=== PATIENT | female | born 1940 | race Caucasian/White ===

== ENCOUNTER 2018-02-16 17:44 | Inpatient (IN) | payer BC, MEDICARE ==
[2018-02-16] MEDS ORDERED: MORPHINE SULFATE 2 MG/ML SYRINGE IV STA (18:17)
[2018-02-16] MEDS ORDERED: SODIUM CHLORIDE 0.9% 500 ML IV STA (18:17)
[2018-02-16] MEDS ORDERED: ONDANSETRON 4 MG/2 ML VIAL IVP STA (18:17)
--- NOTE | 2018-02-16 18:23 | ED ---
General Adult HPI - General Chief complaint: Abdominal Pain Stated complaint: Abd Pain, Nausea Time Seen by Provider: 02/16/18 17:57 Source: patient, family, RN notes reviewed, old records reviewed Mode of arrival: wheelchair Limitations: no limitations - History of Present Illness Initial comments: 77-year-old female presents for evaluation of right-sided abdominal pain. Pain began yesterday and has progressively worsened. She has had this pain in the past but did not have any formal diagnosis made. She has chronic back pain for which she takes [place] 10 mg tablets. She denies vomiting but states she's had some nausea. Her last bowel movement was 3 hours prior to arrival and was yellow and loose.Ever diarrhea no rectal bleeding. Denies upper abdominal pain or chest pain. No shortness of breath. No fever or chills. She has had both her gallbladder and her appendix removed. - Related Data Home Medications Medication Instructions Recorded Confirmed Aspirin 81 mg PO BID 03/26/14 02/16/18 Gabapentin [Neurontin] 400 mg PO BID 03/26/14 02/16/18 Irbesartan/Hydrochlorothiazide 1 tab PO DAILY 03/26/14 02/16/18 [Avalide 150-12.5 mg Tablet] Montelukast [Singulair] 10 mg PO DAILY 03/26/14 02/16/18 Sertraline [Zoloft] 100 mg PO DAILY 03/26/14 02/16/18 Simvastatin [Zocor] 10 mg PO HS 03/26/14 02/16/18 Tolterodine Tartrate [Detrol LA] 4 mg PO DAILY 03/26/14 02/16/18 Baclofen [Lioresal] 10 mg PO TID 02/16/18 02/16/18 HYDROcodone/APAP 5-325MG [[place] 1 tab PO Q6HR PRN 02/16/18 02/16/18 5-325] Metoprolol Succinate (ER) [Toprol 50 mg PO BID 02/16/18 02/16/18 Xl] Multivitamins, Thera [Multivitamin 1 tab PO DAILY 02/16/18 02/16/18 (formulary)] Nortriptyline [Pamelor] 25 mg PO HS 02/16/18 02/16/18 Omeprazole [PriLOSEC] 20 mg PO AC-BID 02/16/18 02/16/18 Sucralfate [Carafate] 1 gm PO ACHS 02/16/18 02/16/18 hydrALAZINE HCL [Apresoline] 25 mg PO TID 02/16/18 02/16/18 Allergies Allergy/AdvReac Type Severity Reaction Status Date / Time latex Allergy Itching Verified 02/16/18 18:26 meperidine Allergy Swelling Verified 02/16/18 18:26 Penicillins AdvReac Confusion Verified 02/16/18 18:26 pregabalin [From Lyrica] AdvReac Confusion Verified 02/16/18 18:26 Sulfa (Sulfonamide AdvReac Itching Verified 02/16/18 18:26 Antibiotics) trimethoprim AdvReac Confusion Verified 02/16/18 18:26 Review of Systems ROS Statement: Those systems with pertinent positive or pertinent negative responses have been documented in the HPI. ROS Other: All systems not noted in ROS Statement are negative. Past Medical History Past Medical History: Asthma, Cancer, Chest Pain / Angina, Fibromyalgia, Hyperlipidemia, Hypertension, Osteoarthritis (OA) History of Any Multi-Drug Resistant Organisms: None Reported Past Surgical History: Appendectomy, Back Surgery, Bladder Surgery, Breast Surgery, Cholecystectomy, Heart Catheterization, Hysterectomy, Orthopedic Surgery Additional Past Surgical History / Comment(s): Skin CA removed, bladder suspension, bilat cataracts, rt foot surgery, lt wrist ganglion cystectomy, rt shoulder surgery, colonoscopy, egd, rt breast biopsy, rt knee scope, neck surgery Past Anesthesia/Blood Transfusion Reactions: No Reported Reaction Past Psychological History: No Psychological Hx Reported Smoking Status: Never smoker Past Alcohol Use History: None Reported Past Drug Use History: None Reported - Past Family History Father Family Medical History: Cancer Mother Family Medical History: Cancer Brother(s) Family Medical History: Cancer General Exam Limitations: no limitations General appearance: alert, in no apparent distress Head exam: Present: atraumatic, normocephalic Eye exam: Present: normal appearance. Absent: PERRL, EOMI ENT exam: Present: normal exam Neck exam: Present: normal inspection. Absent: tenderness, meningismus Respiratory exam: Present: normal lung sounds bilaterally. Absent: respiratory distress, wheezes Cardiovascular Exam: Present: regular rate, normal rhythm GI/Abdominal exam: Present: soft, distended, tenderness (Mid right-sided tenderness to palpation). Absent: guarding, rebound Extremities exam: Present: normal inspection, normal capillary refill, other ( DP pulses are 2+ and symmetric) Back exam: Absent: CVA tenderness (R), CVA tenderness (L) Neurological exam: Present: alert, oriented X3, CN II-XII intact. Absent: motor sensory deficit Psychiatric exam: Present: normal affect, normal mood Skin exam: Present: warm, dry, intact. Absent: cyanosis, diaphoretic Course Vital Signs 02/16/18 02/16/18 02/16/18 17:52 19:41 20:05 Temperature 98.4 F Pulse Rate 80 86 91 Respiratory 18 18 18 Rate Blood Pressure 202/92 208/91 181/82 O2 Sat by Pulse 99 99 99 Oximetry 02/16/18 22:13 Temperature Pulse Rate 91 Respiratory 16 Rate Blood Pressure 156/68 O2 Sat by Pulse 94 L Oximetry Medical Decision Making - Medical Decision Making 77-year-old female presenting with right upper quadrant abdominal pain. She has history of previous cholecystectomy. She is tender on exam. No rebound or guarding. Laboratory studies are obtained, normal white blood cell count, stable hemoglobin, potassium is 3.3 which is replaced. She has a mild elevation in AST, ALT, alkaline phosphatase and lipase. Total bili is normal. X-rays obtained this is negative for obstruction or free air. CT with contrast is obtained and does show significant dilatation of the common bile duct at 1.6 cm with no stone. This is reported as likely stricture. Initially patient is feeling better after treatment. Case is discussed with Dr. Durán, as long as patient is feeling better outpatient follow-up is appropriate. On reevaluation patient's symptoms have returned she will be admitted for IV hydration, pain control, and gastroenterology consultation. - Lab Data Result diagrams: 02/16/18 18:20 02/16/18 18:20 Lab Results 02/16/18 02/16/18 02/16/18 Range/Units 18:20 18:20 18:20 WBC 4.3 (3.8-10.6) k/uL RBC 3.91 (3.80-5.40) m/uL Hgb 12.1 (11.4-16.0) gm/dL Hct 36.6 (34.0-46.0) % MCV 93.8 (80.0-100.0) fL MCH 31.0 (25.0-35.0) pg MCHC 33.1 (31.0-37.0) g/dL RDW 13.8 (11.5-15.5) % Plt Count 177 (150-450) k/uL Neutrophils % 68 % Lymphocytes % 22 % Monocytes % 6 % Eosinophils % 1 % Basophils % 0 % Neutrophils # 3.0 (1.3-7.7) k/uL Lymphocytes # 1.0 (1.0-4.8) k/uL Monocytes # 0.3 (0-1.0) k/uL Eosinophils # 0.0 (0-0.7) k/uL Basophils # 0.0 (0-0.2) k/uL PT (9.0-12.0) sec INR (<1.2) APTT (22.0-30.0) sec Sodium 143 (137-145) mmol/L Potassium 3.3 L (3.5-5.1) mmol/L Chloride 103 (98-107) mmol/L Carbon Dioxide 26 (22-30) mmol/L Anion Gap 14 mmol/L BUN 9 (7-17) mg/dL Creatinine 0.62 (0.52-1.04) mg/dL Est GFR (CKD-EPI)AfAm >90 (>60 ml/min/1.73 sqM) Est GFR (CKD-EPI)NonAf 87 (>60 ml/min/1.73 sqM) Glucose 99 (74-99) mg/dL Plasma Lactic Acid Hernan 1.0 (0.7-2.0) mmol/L Calcium 9.6 (8.4-10.2) mg/dL Total Bilirubin 0.6 (0.2-1.3) mg/dL AST 60 H (14-36) U/L ALT 68 H (9-52) U/L Alkaline Phosphatase 276 H (38-126) U/L Total Protein 6.8 (6.3-8.2) g/dL Albumin 4.3 (3.5-5.0) g/dL Amylase 94 (30-110) U/L Lipase 364 H (23-300) U/L Urine Color Urine Appearance (Clear) Urine pH (5.0-8.0) Ur Specific [place] (1.001-1.035) Urine Protein (Negative) Urine Glucose (UA) (Negative) Urine Ketones (Negative) Urine Blood (Negative) Urine Nitrite (Negative) Urine Bilirubin (Negative) Urine Urobilinogen (<2.0) mg/dL Ur Leukocyte Esterase (Negative) Urine RBC (0-5) /hpf Urine WBC (0-5) /hpf Ur Squamous Epith Cells (0-4) /hpf Urine Bacteria (None) /hpf Urine Mucus (None) /hpf 02/16/18 02/16/18 Range/Units 18:20 18:20 WBC (3.8-10.6) k/uL RBC (3.80-5.40) m/uL Hgb (11.4-16.0) gm/dL Hct (34.0-46.0) % MCV (80.0-100.0) fL MCH (25.0-35.0) pg MCHC (31.0-37.0) g/dL RDW (11.5-15.5) % Plt Count (150-450) k/uL Neutrophils % % Lymphocytes % % Monocytes % % Eosinophils % % Basophils % % Neutrophils # (1.3-7.7) k/uL Lymphocytes # (1.0-4.8) k/uL Monocytes # (0-1.0) k/uL Eosinophils # (0-0.7) k/uL Basophils # (0-0.2) k/uL PT 10.4 (9.0-12.0) sec INR 1.1 (<1.2) APTT 22.4 (22.0-30.0) sec Sodium (137-145) mmol/L Potassium (3.5-5.1) mmol/L Chloride (98-107) mmol/L Carbon Dioxide (22-30) mmol/L Anion Gap mmol/L BUN (7-17) mg/dL Creatinine (0.52-1.04) mg/dL Est GFR (CKD-EPI)AfAm (>60 ml/min/1.73 sqM) Est GFR (CKD-EPI)NonAf (>60 ml/min/1.73 sqM) Glucose (74-99) mg/dL Plasma Lactic Acid Hernan (0.7-2.0) mmol/L Calcium (8.4-10.2) mg/dL Total Bilirubin (0.2-1.3) mg/dL AST (14-36) U/L ALT (9-52) U/L Alkaline Phosphatase (38-126) U/L Total Protein (6.3-8.2) g/dL Albumin (3.5-5.0) g/dL Amylase (30-110) U/L Lipase (23-300) U/L Urine Color Colorless Urine Appearance Clear (Clear) Urine pH 7.5 (5.0-8.0) Ur Specific [place] 1.002 (1.001-1.035) Urine Protein Trace H (Negative) Urine Glucose (UA) Negative (Negative) Urine Ketones Trace H (Negative) Urine Blood Negative (Negative) Urine Nitrite Negative (Negative) Urine Bilirubin Negative (Negative) Urine Urobilinogen <2.0 (<2.0) mg/dL Ur Leukocyte Esterase Small H (Negative) Urine RBC <1 (0-5) /hpf Urine WBC 3 (0-5) /hpf Ur Squamous Epith Cells <1 (0-4) /hpf Urine Bacteria Rare H (None) /hpf Urine Mucus Rare H (None) /hpf Disposition 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
[2018-02-16 18:35] LABS: Basophils % (A) 0 %; Eosinophils % (A) 1 %; HCT 36.6 % (34.0-46.0); HGB 12.1 gm/dL (11.4-16.0); Lymphocytes % (A) 22 %; MCHC 33.1 g/dL (31.0-37.0); MCV 93.8 fL (80.0-100.0); Mean Platelet Volume 6.6; Monocytes # (A) 0.3 k/uL (0-1.0); Monocytes % (A) 6 %; Neutrophils % (A) 68 %; Platelet Count 177 k/uL (150-450); RBC 3.91 m/uL (3.80-5.40); RDW 13.8 % (11.5-15.5); WBC 4.3 k/uL (3.8-10.6)
[2018-02-16 18:38] LABS: Appearance,Urine Clear (Clear); Bacteria,Urine Rare /hpf; Bilirubin,Urine Negative (Negative); Blood,Urine Negative (Negative); Color,Urine Colorless; Glucose,Urine (UA) Negative (Negative); Ketones,Urine Trace (Negative); Leukocyte Esterase,Urine Small (Negative); Mucus,Urine Rare /hpf; Nitrite,Urine Negative (Negative); PH, Urine 7.5 (5.0-8.0); Protein,Urine Trace (Negative); RBC,Urine <1 /hpf (0-5); Specific Gravity,Urine 1.002 (1.001-1.035); Squamous Epithelial Cell,Urine <1 /hpf (0-4); Urobilinogen,Urine <2.0 mg/dL (<2.0); WBC,Urine 3 /hpf (0-5)
[2018-02-16 18:43] LABS: INR 1.1 (<1.2); Partial Thromboplastin Time 22.4 sec (22.0-30.0); Prothrombin Time 10.4 sec (9.0-12.0)
[2018-02-16 18:45] LABS: ALT 68 U/L (9-52); AST 60 U/L (14-36); Albumin 4.3 g/dL (3.5-5.0); Alkaline Phosphatase 276 U/L (38-126); Amylase 94 U/L (30-110); Anion Gap 14 mmol/L; Blood Urea Nitrogen 9 mg/dL (7-17); Calcium 9.6 mg/dL (8.4-10.2); Carbon Dioxide 26 mmol/L (22-30); Chloride 103 mmol/L (98-107); Glucose 99 mg/dL (74-99); Lipase 364 U/L (23-300); Potassium 3.3 mmol/L (3.5-5.1); Sodium 143 mmol/L (137-145); Total Bilirubin 0.6 mg/dL (0.2-1.3); Total Protein 6.8 g/dL (6.3-8.2)
--- NOTE | 2018-02-16 18:49 | XR ---
EXAMINATION TYPE: XR KUB DATE OF EXAM: 02/16/2018 6:43 PM CLINICAL HISTORY: Right-sided abdominal pain and nausea TECHNIQUE: Single upright image of the abdomen is obtained. COMPARISON: None. FINDINGS: Scattered gas is seen in non-distended small bowel loops. Gas and fecal material is seen in non-distended colon. There is no visceromegaly, pneumoperitoneum, or abnormal calcification apprecia hola. Postsurgical changes are seen in the lumbar spine with dextroscoliosis and extensive degenerativ e change. Cholecystectomy clips are also noted. The lung bases are clear. IMPRESSION: Nonobstructive bowel gas pattern.
[2018-02-16] MEDS ORDERED: FAMOTIDINE 20 MG/2 ML VIAL IV STA (19:26)
[2018-02-16] MEDS ORDERED: diphenhydrAMINE 50 MG/ML 1 ML VIAL IVP STA (19:26)
[2018-02-16] MEDS ORDERED: methylPREDNISolone SOD SUCCI 125 MG/2 ML VIAL IV STA (19:26)
[2018-02-16] MEDS ORDERED: METOPROLOL SUCCINATE (ER) 50 MG TAB.ER.24H PO STA (19:43)
[2018-02-16] MEDS ORDERED: hydrALAZINE HCL 25 MG TAB PO STA (19:43)
--- NOTE | 2018-02-16 20:25 | CT ---
EXAMINATION TYPE: CT abdomen pelvis w con DATE OF EXAM: 02/16/2018 HISTORY: Right sided abdominal pain with nausea. CT DLP: 784.2mGycm Automated Exposure Control for Dose Reduction was Utilized. CONTRAST: CT scan of the abdomen and pelvis is performed with IV Contrast, patient injected with 100 mL of Isov ue 300. COMPARISON: None. FINDINGS: LUNG BASES: Bibasilar subsegmental atelectasis is seen. LIVER/GB: There is mild intrahepatic and pronounced extrahepatic biliary ductal dilatation. Common bi le duct measures up to 1.6 cm. There is tapering seen at the pancreatic head, which could relate to s tricture. Tapering does appear smooth. No pancreatic ductal dilatation. Gallbladder surgically absent . PANCREAS: Mild pancreatic atrophy with no ductal dilatation. SPLEEN: No splenomegaly. ADRENALS: No nodularity or thickening. KIDNEYS: Sparing artifact from the lumbar fusion rods limit evaluation of the kidneys. There is an il l-defined left renal mass versus pseudomass that is isoattenuated to renal parenchyma but seen on the coronal images best on series 8 image 47. This measures 2.5 x 2.4 x 2.3 cm. BOWEL: There are a few scattered colonic diverticuli without pericolonic fat stranding changes. Bowel is nondilated. UTERUS/ADNEXA: The uterus is either surgically absent or significantly atrophy.. LYMPH NODES: No greater than 1cm abdominal or pelvic lymph nodes are appreciated. OSSEOUS STRUCTURES: There are postsurgical changes of the lumbar spine with grade 2 retrolisthesis of L2 on L3, grade 1 retrolisthesis of L1 on L2, and age-indeterminate fracture deformity of T12 there is superior endplate with 4 mm retropulsion of the superior posterior endplate creating at least mild spinal canal stenosis. Additionally there is grade 1 anterolisthesis of L5 on S1. There is a dextros coliotic curvature of the lumbar spine. OTHER: Abdominal aorta is of normal course and caliber with minimal calcific and noncalcific atheroma tous changes. IMPRESSION: 1. Mild intrahepatic and pronounced extrahepatic biliary ductal dilatation with smooth tapering at th e pancreatic head of the biliary system favoring stricture. No radiopaque calculi are seen. 2. 2.5 cm left renal mass versus pseudomass. Further evaluation with enhanced MRI is recommended to e xclude neoplasm. 3. Age indeterminant compression deformity of the T12 vertebral body, postsurgical changes of the lum bar spine, extra scoliosis of the lumbar spine and multilevel malalignment.
[2018-02-16] MEDS ORDERED: ONDANSETRON 4 MG/2 ML VIAL IVP PRN (22:34)
[2018-02-16] MEDS ORDERED: NALOXONE 0.4 MG/ML 1 ML VIAL IV PRN (22:34)
[2018-02-16] MEDS ORDERED: POTASSIUM CHLORIDE ER 20 MEQ TAB.ER PO STA (22:34)
[2018-02-16] MEDS: hydrALAZINE HCL 25 MG TAB PO SCH (23:15)
[2018-02-16] MEDS: METOPROLOL SUCCINATE (ER) 50 MG TAB.ER.24H PO SCH (23:15)
[2018-02-17] MEDS: HYDROmorphone 0.5 MG/0.5 ML SYRINGE IVP PRN ×3 (00:23→16:06)
[2018-02-17] MEDS: 0.9% NACL WITH KCL 20 MEQ/L 1,000 ML IV SCH ×2 (00:23→21:21)
[2018-02-17] MEDS: BACLOFEN 10 MG TAB PO SCH ×4 (00:24→21:07)
[2018-02-17] MEDS: GABAPENTIN 400 MG CAP PO SCH ×3 (00:25→21:06)
[2018-02-17 01:25] VITALS: BMI 28.3
[2018-02-17 07:48] LABS: Basophils % (A) 0 %; Eosinophils % (A) 0 %; HCT 34.1 % (34.0-46.0); HGB 11.4 gm/dL (11.4-16.0); Lymphocytes # (A) 0.7 k/uL (1.0-4.8); Lymphocytes % (A) 19 %; MCH 31.5 pg (25.0-35.0); MCHC 33.4 g/dL (31.0-37.0); MCV 94.4 fL (80.0-100.0); Mean Platelet Volume 7.5; Monocytes # (A) 0.1 k/uL (0-1.0); Monocytes % (A) 2 %; Neutrophils # (A) 2.8 k/uL (1.3-7.7); Neutrophils % (A) 78 %; Platelet Count 167 k/uL (150-450); RBC 3.61 m/uL (3.80-5.40); RDW 13.7 % (11.5-15.5); WBC 3.5 k/uL (3.8-10.6)
[2018-02-17 07:55] LABS: INR 1.1 (<1.2); Prothrombin Time 10.5 sec (9.0-12.0)
[2018-02-17 07:58] LABS: ALT 95 U/L (9-52); AST 102 U/L (14-36); Albumin 3.8 g/dL (3.5-5.0); Alkaline Phosphatase 267 U/L (38-126); Amylase 40 U/L (30-110); Anion Gap 12 mmol/L; Blood Urea Nitrogen 9 mg/dL (7-17); Calcium 9.1 mg/dL (8.4-10.2); Carbon Dioxide 27 mmol/L (22-30); Chloride 105 mmol/L (98-107); Glucose 126 mg/dL (74-99); Lipase 47 U/L (23-300); Magnesium 1.2 mg/dL (1.6-2.3); Sodium 144 mmol/L (137-145); Total Bilirubin 0.5 mg/dL (0.2-1.3); Total Protein 6.2 g/dL (6.3-8.2)
[2018-02-17] MEDS: hydrALAZINE HCL 25 MG TAB PO SCH ×3 (08:19→21:07)
[2018-02-17] MEDS: PANTOPRAZOLE 40 MG/10 ML VIAL IVP SCH (08:19)
[2018-02-17] MEDS: METOPROLOL SUCCINATE (ER) 50 MG TAB.ER.24H PO SCH ×2 (08:20→21:06)
[2018-02-17] MEDS: SUCRALFATE 1 GM TAB PO SCH ×4 (08:20→21:06)
[2018-02-17] MEDS ORDERED: NON-FORMULARY DRUG (Omeprazole 20 MG) PO SCH (10:15)
[2018-02-17] MEDS ORDERED: OXYBUTYNIN XL 5 MG TAB.ER.24 PO SCH (10:30)
[2018-02-17] MEDS: MONTELUKAST 10 MG TAB PO SCH (12:59)
[2018-02-17] MEDS: SERTRALINE 100 MG TAB PO SCH (13:00)
[2018-02-17] MEDS: LOSARTAN 50 MG TAB PO SCH (13:00)
[2018-02-17] MEDS: HYDROCHLOROTHIAZIDE 12.5 MG CAP PO SCH (13:00)
[2018-02-17] MEDS: OXYBUTYNIN XL 5 MG TAB.ER.24 PO SCH (13:01)
[2018-02-17] MEDS ORDERED: LACTULOSE 20 GM/30 ML CUP PO PRN (13:49)
[2018-02-17] MEDS ORDERED: MAGNESIUM HYDROXIDE 2,400 MG/10 ML CUP PO PRN (13:49)
[2018-02-17] MEDS ORDERED: MELATONIN 3 MG TABLET PO PRN (13:49)
[2018-02-17] MEDS ORDERED: ALPRAZolam 0.25 MG TAB PO PRN (13:49)
[2018-02-17] MEDS ORDERED: CALCIUM CARBONATE 500 MG CHEWABLE PO PRN (13:49)
[2018-02-17] MEDS: HYDROcodone/APAP 5-325MG 1 EACH TAB PO PRN (15:29)
[2018-02-17] MEDS: ENOXAPARIN 40 MG/0.4 ML SYRINGE SQ SCH (16:06)
--- NOTE | 2018-02-17 16:24 | P.CNOR ---
History of Present Illness - [facility] Consult date: 02/17/18 Requesting physician: Matteo Rivas Consult reason: low back pain History of present illness: Patient is a very pleasant 77-year-old female who is seen and examined at bedside for further evaluation and consult was placed for low back pain and right-sided hip pain. She has a significant history in terms of her lumbar spine. She states she first underwent surgical intervention [address] Weston. She states postoperatively she had a stroke which left her with some chronic weakness in the left side of her body. She states since that time she has undergone 6 other surgical interventions in regards to her lumbosacral spine with the last being a fusion performed by Dr. Vidal in May 2017. She continues to follow with Dr. Vidal for further treatment and evaluation. She states she goes to [place] over the winter. She states that after further discussion with Dr. Vidal, they returned from [place] early in December 2017 for further evaluation in regards to her lumbar spine. At that time is admitted to the hospital for approximately one week due to lower extremity weakness. At discharge she was discharged to a rehabilitation facility. Since at that time she states she's had another small stroke. She states she is planning for further treatment with Dr. Vidal and states she was going to undergo further injections but was not planning for further surgical intervention. She does admit to chronic low back pain. She states her symptoms have been worsening. She does not have any pain with palpation to her lumbosacral spine. She states her pain is controlled while sitting. Her pain is exacerbated during increased activities. She denies any specific recent injuries. She has some pain that radiates over the right lateral hip. She denies any specific lower extremity weakness bilaterally other than her chronic left lower extremity weakness. She presented to the emergency department for further evaluation in regards to significantly worsening right-sided abdominal pain. She was experiencing some back pain at that time as well. She admits to taking [place] 10 mg/325 mg as prescribed for her chronic back pain. Nursing states she is currently scheduled for an MRCP today or tomorrow. Past Medical History Past Medical History: Asthma, Cancer, Chest Pain / Angina, CVA/TIA, Fibromyalgia , Hyperlipidemia, Hypertension, Osteoarthritis (OA) Additional Past Medical History / Comment(s): Patient states she was admitted to [facility] in [place] for two "mini strokes" within the past month. States she was admitted for a week at a time for each "mini stroke". History of Any Multi-Drug Resistant Organisms: None Reported Past Surgical History: Appendectomy, Back Surgery, Bladder Surgery, Breast Surgery, Cholecystectomy, Heart Catheterization, Hysterectomy, Orthopedic Surgery Additional Past Surgical History / Comment(s): Skin CA removed, bladder suspension, bilat cataracts, rt foot surgery, lt wrist ganglion cystectomy, rt shoulder surgery, colonoscopy, egd, rt breast biopsy, rt knee scope, neck surgery Past Anesthesia/Blood Transfusion Reactions: No Reported Reaction Past Psychological History: No Psychological Hx Reported Smoking Status: Never smoker Past Alcohol Use History: None Reported Past Drug Use History: None Reported - Past Family History Father Family Medical History: Cancer Mother Family Medical History: Cancer Brother(s) Family Medical History: Cancer Medications and Allergies Home Medications Medication Instructions Recorded Confirmed Type Aspirin 81 mg PO BID 03/26/14 02/16/18 History Gabapentin [Neurontin] 400 mg PO BID 03/26/14 02/16/18 History Irbesartan/Hydrochlorothiazide 1 tab PO DAILY 03/26/14 02/16/18 History [Avalide 150-12.5 mg Tablet] Montelukast [Singulair] 10 mg PO DAILY 03/26/14 02/16/18 History Sertraline [Zoloft] 100 mg PO DAILY 03/26/14 02/16/18 History Simvastatin [Zocor] 10 mg PO HS 03/26/14 02/16/18 History Tolterodine Tartrate [Detrol LA] 4 mg PO DAILY 03/26/14 02/16/18 History Baclofen [Lioresal] 10 mg PO TID 02/16/18 02/16/18 History HYDROcodone/APAP 5-325MG [[place] 1 tab PO Q6HR PRN 02/16/18 02/16/18 History 5-325] Metoprolol Succinate (ER) [Toprol 50 mg PO BID 02/16/18 02/16/18 History Xl] Multivitamins, Thera [Multivitamin 1 tab PO DAILY 02/16/18 02/16/18 History (formulary)] Nortriptyline [Pamelor] 25 mg PO HS 02/16/18 02/16/18 History Omeprazole [PriLOSEC] 20 mg PO AC-BID 02/16/18 02/16/18 History Sucralfate [Carafate] 1 gm PO ACHS 02/16/18 02/16/18 History hydrALAZINE HCL [Apresoline] 25 mg PO TID 02/16/18 02/16/18 History Allergies Allergy/AdvReac Type Severity Reaction Status Date / Time latex Allergy Itching Verified 02/17/18 09:25 meperidine Allergy Swelling Verified 02/17/18 09:25 Penicillins AdvReac Confusion Verified 02/17/18 09:25 pregabalin [From Lyrica] AdvReac Confusion Verified 02/17/18 09:25 Sulfa (Sulfonamide AdvReac Itching Verified 02/17/18 09:25 Antibiotics) trimethoprim AdvReac Confusion Verified 02/17/18 09:25 Physical Examination Physical exam: Patient is awake, alert, and oriented 3 Vital signs stable Good chest excursion with deep inspiration and expiration Examination of lumbar spine reveals skin is intact with no abrasions, lacerations, or bruises; no erythema, purulence or signs of infection Evidence of a large well-healed incision along the midline of the lumbar spine No exacerbation of pain with palpation of the lumbar spine Dorsiflexion, plantarflexion, and extensor hallucis longus positive sustained bilaterally Lower extremity strength 5/5 on the right Left lower extremity strength 4-/5 including hip flexion and knee extension No lower extremity hyperreflexia bilaterally Straight leg test negative bilateral lower extremities No signs or symptoms of DVT; no calf pain Compression stocking intact left lower extremity No pain with internal and external rotation of the hips bilaterally Neurovascularly intact Results Pertinent studies: CT the abdomen and pelvis: Intrahepatic and pronounced extrahepatic biliary ductal dilation was used tapering at the pancreatic head; 2.5 cm left renal mass versus pseudo-mass; T12 compression fracture deformity of indeterminate age ; lumbar fusion L3-4; L1-2 retrolisthesis; L2-3 retrolisthesis and asymmetric degenerative disc disease; L4-5 degenerative disc disease and a lateral listhesis; L5-S1 spondylolisthesis and degenerative disc disease, degenerative scoliosis with the apex of the curve at L2-3 - Labs Labs: Abnormal Lab Results - Last 24 Hours (Table) 02/16/18 02/16/18 02/17/18 Range/Units 18:20 18:20 07:24 WBC 3.5 L (3.8-10.6) k/uL RBC 3.61 L (3.80-5.40) m/uL Lymphocytes # 0.7 L (1.0-4.8) k/uL Potassium 3.3 L (3.5-5.1) mmol/L Glucose (74-99) mg/dL Magnesium (1.6-2.3) mg/dL AST 60 H (14-36) U/L ALT 68 H (9-52) U/L Alkaline Phosphatase 276 H (38-126) U/L Total Protein (6.3-8.2) g/dL Lipase 364 H (23-300) U/L Urine Protein Trace H (Negative) Urine Ketones Trace H (Negative) Ur Leukocyte Esterase Small H (Negative) Urine Bacteria Rare H (None) /hpf Urine Mucus Rare H (None) /hpf 02/17/18 Range/Units 07:24 WBC (3.8-10.6) k/uL RBC (3.80-5.40) m/uL Lymphocytes # (1.0-4.8) k/uL Potassium (3.5-5.1) mmol/L Glucose 126 H (74-99) mg/dL Magnesium 1.2 L (1.6-2.3) mg/dL AST 102 H (14-36) U/L ALT 95 H (9-52) U/L Alkaline Phosphatase 267 H (38-126) U/L Total Protein 6.2 L (6.3-8.2) g/dL Lipase (23-300) U/L Urine Protein (Negative) Urine Ketones (Negative) Ur Leukocyte Esterase (Negative) Urine Bacteria (None) /hpf Urine Mucus (None) /hpf H & H 02/16/18 02/17/18 Range/Units 18:20 07:24 Hgb 12.1 11.4 (11.4-16.0) gm/dL Hct 36.6 34.1 (34.0-46.0) % Coagulation 18 02/17/18 Range/Units 18:20 07:24 INR 1.1 1.1 (<1.2) Result Diagrams: 02/17/18 07:24 02/17/18 07:24 Assessment and Plan Assessment: Assessment: Acute on chronic low back pain Previous lumbar fusion L3-4 Lumbar radiculopathy towards the right hip L1-2 and L2-3 retrolisthesis L4-5 lateral listhesis L5-S1 spondylolisthesis Multilevel lumbar degenerative disc disease T12 compression fracture deformity of indeterminate age Degenerative scoliosis Chronic left lower extremity weakness status post stroke Right sided abdominal pain Left renal mass vs pseudomass (1) Acute exacerbation of chronic low back pain Current Visit: Yes Status: Acute Code(s): M54.5 - LOW BACK PAIN; G89.29 - OTHER CHRONIC PAIN SNOMED Code(s): 860705816 (2) History of lumbar fusion Current Visit: Yes Status: Acute Code(s): Z98.1 - ARTHRODESIS STATUS SNOMED Code(s): 297395395 (3) Spondylolisthesis, lumbar region Current Visit: Yes Status: Acute Code(s): M43.16 - SPONDYLOLISTHESIS, LUMBAR REGION SNOMED Code(s): 244976057215001 (4) Degenerative scoliosis in adult patient Current Visit: Yes Status: Acute Code(s): M41.50 - OTHER SECONDARY SCOLIOSIS , SITE UNSPECIFIED SNOMED Code(s): 150697778 (5) Lumbar degenerative disc disease Current Visit: Yes Status: Acute Code(s): M51.36 - OTHER INTERVERTEBRAL DISC DEGENERATION, LUMBAR REGION SNOMED Code(s): 94666433 (6) T12 compression fracture Current Visit: Yes Status: Acute Code(s): S22.080A - WEDGE COMPRESSION FRACTURE OF T11-T12 VERTEBRA, INIT SNOMED Code(s): 343268809 (7) Left leg weakness Current Visit: Yes Status: Acute Code(s): R29.898 - OTH SYMPTOMS AND SIGNS INVOLVING THE MUSCULOSKELETAL SYSTEM SNOMED Code(s): 834078519 (8) History of stroke Current Visit: Yes Status: Acute Code(s): Z86.73 - PRSNL HX OF TIA (TIA), AND CEREB INFRC W/O RESID DEFICITS SNOMED Code(s): 412532512 (9) Right sided abdominal pain Current Visit: Yes Status: Acute Code(s): R10.9 - UNSPECIFIED ABDOMINAL PAIN SNOMED Code(s): 587625084 Plan: Plan: 1. Imaging has been reviewed by Dr. Oskar Villalobos and myself. Patient has been discussed in detail with Dr. Oskar Villalobos. At this time, we'll plan to continue conservative treatment regards her lumbosacral spine. Patient has undergone approximately 7 surgical interventions in regards to her lumbar spine with her most recent being a lumbar fusion at L3-[address] Vidal in May 2017. She continues to follow with Dr. Vidal and is currently receiving treatment with him. She states she is planning for further injections with Dr. Vidal. She has significant degenerative changes throughout her lumbosacral spine. It is difficult to determine which level is causing her the most pain. We feel she should continue to follow with Dr. Vidal as she has already established with him, has undergone surgical intervention with him, and continues to follow with him. She may continue to take [place] 10 mg/325 mg as previously prescribed as needed for relief of her symptoms. We are not currently complaining for any changes in terms of medications and are not discussing the possibility of surgical intervention. From an orthopedic spine standpoint, patient is clear for discharge once cleared by other medical providers and we'll continue to follow with Dr. Vidal as scheduled. 2. Patient will continue to be seen and examined by medicine and Dr. Durán in gastroenterology for further treatment and evaluation in regards to her right- sided abdominal pain; patient is currently planning to undergo MRCP today or tomorrow. 3. Dr. Rivas in medicine has consulted with Dr. Mckinley for further evaluation of a left renal mass vs pseudomass Time with Patient: Less than 30
--- NOTE | 2018-02-17 16:27 | HP ---
HISTORY AND PHYSICAL DATE OF ADMISSION: 02/16/2018 DATE OF SERVICE: 02/17/2018 PRESENTING COMPLAINT: Right-sided pain. HISTORY OF PRESENTING COMPLAINT: This is a very pleasant 77-year-old patient of Dr. Kwon. Chronic stable conditions include fibromyalgia, hypertension, hyperlipidemia, osteoarthritis and TIAs. The patient has had at least 3 back surgeries, including and Dr. Ramires. The patient had multiple lumbar fusions done. Patient was in [facility], and started developing severe pain in the right side below the ribcage, what she described as coming from the back come to the front. There was some nausea. No fever. No chills. The patient has had a poor appetite for the last few months and has lost about 15 pounds. Patient normally has a bowel movement every 3 days, green in color. No fever or chills. Patient in the ER did have an abdominal CT scan that did show some extrahepatic biliary dilatation. Hence patient was admitted for further workup. Patient's pain is much worse with moving, and especially when the car would bump, the pain would increase. REVIEW OF SYSTEMS: CONSTITUTIONAL: Tired. HEENT: None. RESPIRATORY: None. CARDIOVASCULAR: None. GASTROINTESTINAL: None. GENITOURINARY: None. MUSCULOSKELETAL: Arthritic pain in the joints and as above. DERMATOLOGICAL: None. HEMATOLOGICAL: None. LYMPHATICS: None. PSYCHIATRY: None. NEUROLOGICAL: None. PAST MEDICAL HISTORY: 1. TIA. 2. Fibromyalgia. 3. Hypertension. 4. Hyperlipidemia. 5. Osteoarthritis. PAST SURGICAL HISTORY: 1. Appendectomy. 2. Back surgery. 3. Bladder surgery. 4. Breast surgery. 5. Cholecystectomy. 6. Cardiac catheterization. 7. Hysterectomy. 8. Skin cancer. 9. Bladder suspension. 10.Bilateral cataract. 11.Right foot surgery. 12.Left wrist ganglion cystectomy. 13.Right shoulder surgery. 14.Right breast biopsy. 15.Right knee arthroscope. 16.Neck surgery. SOCIAL HISTORY: No smoking. No alcohol. . FAMILY HISTORY: Cancer; type unknown. HOME MEDICATIONS: 1. [place] 5 one tablet q.6 p.r.n. 2. Hydralazine 25 mg p.o. t.i.d. 3. Toprol XL 50 mg p.o. b.i.d. 4. Baclofen 10 mg t.i.d. 5. Carafate 1 gram with each meal and at bedtime. 6. Prilosec 20 mg b.i.d. 7. Singulair 10 mg p.o. daily. 8. Irbesartan/hydrochlorothiazide 150/12.5 one tablet p.o. daily. 9. Neurontin 100 mg b.i.d. 10.Detrol LA 4 mg p.o. daily. 11.Zocor 10 mg at bedtime. 12.Zoloft 100 mg p.o. daily. 13.Multivitamin 1 tablet p.o. daily. 14.Pamelor 25 mg at bedtime. 15.Aspirin 81 mg p.o. b.i.d. ALLERGIES: 1. LATEX. 2. MEPERIDINE. 3. PENICILLIN. 4. LYRICA. 5. SULFA. 6. BACTRIM. PHYSICAL EXAMINATION: VITAL SIGNS ON PRESENTATION: Temperature 98.4, pulse 80, respiration 18, blood pressure 202/92, repeat 156/68, pulse ox 94% on room air. GENERAL APPEARANCE: Average build. Sitting up, uncomfortable-appearing. Family is at the bedside. EYES: Pupils equal. Conjunctivae normal. HEENT: External appearance of nose and ears normal. Oral cavity normal. NECK: JVD not raised. Mass not palpable. RESPIRATORY: Effort normal. Lungs are clear. CARDIOVASCULAR: First and second sounds normal. No edema. RIGHT UPPER QUADRANT: Not much tenderness. Some tenderness on the lower part of the ribs posteriorly adjoining the vertebral spine. No renal angle tenderness. Liver and spleen not palpable. LYMPHATIC: No lymph node palpable in neck or axillae. PSYCHIATRY: Alert and oriented x3. Mood and affect normal. NEUROLOGICAL: Pupils equal. Cranial nerves grossly intact. Power and sensation grossly intact. INVESTIGATIONS: White count 3.5, hemoglobin 11.4, platelets 167. Potassium 4, BUN 9, creatinine 0.63. AST 60; repeat was 102. ALT 68; repeat 95. Alkaline phosphatase 276. Lipase [address] scan of the abdomen and pelvis showing mild intrahepatic and pronounced extrahepatic biliary duct dilatation with smooth tapering at the pancreatic head of the biliary system favoring some stricture. No calculi reported; 2.5 cm left renal mass versus pseudomass, age indeterminate. Compression deformity T12 vertebra and post-surgical changes. ASSESSMENT: 1. This is a very pleasant elderly lady who has had multiple spinal surgeries in the lumbar spine area now presenting with pain that she describes being in the back coming to the front. It well could be radiculopathy, given especially radicular pain. Patient has minimal tenderness, right upper quadrant, but patient has extra biliary dilatation which can happen from cholecystectomy itself, though patient has some elevated liver enzymes. Hence need to rule out any residual stone in the common bile duct. The picture is not clear. 2. Chronic fibromyalgia. 3. Essential hypertension. 4. Hyperlipidemia. 5. Primary osteoarthritis. 6. T12 compression fracture. 7. Left renal mass 2.5 cm. PLAN: Care was discussed with Dr. Brian Durán. She is going to go ahead and do an MRCP; if any suggestion of a stone, patient will need an ERCP in that case. Will also get a urology opinion. Home medications are resumed. Patient is getting some pain medication, ice pack for pain control. Care was discussed with the patient and family at the bedside. MMODL / IJN: [id number] /
[2018-02-17] MEDS: MAGNESIUM OXIDE 400 MG TAB PO SCH ×2 (16:47→21:07)
[2018-02-17] MEDS: NORTRIPTYLINE 25 MG CAP PO SCH (21:06)
[2018-02-17] MEDS: ASPIRIN 81 MG PO SCH (21:06)
--- NOTE | 2018-02-17 21:39 | CONS ---
CONSULTATION DATE OF SERVICE: 02/17/2018 REQUESTING PHYSICIAN: Dr. Rivas. REASON FOR CONSULTATION: Abdominal pain and elevated LFTs. HISTORY OF PRESENT ILLNESS: The patient is a 77-year-old pleasant white female admitted to the hospital because of chronic intermittent right upper quadrant abdominal pain radiating to the back for the last 6 months duration. The pain has been progressively getting worse for the last few days and yesterday the pain became so intense she came into the emergency room and subsequently was admitted for further evaluation. The patient states that she has chronic back pain. Had multiple back surgeries over the last several years. The pain is mostly in the right flank area and radiates to the right upper quadrant area and worse with physical activity. Occasionally the pain causes nausea, but no emesis. She is status post gallbladder surgery multiple years ago for symptomatic gallstones. In the emergency room, she had a CT of the abdomen and pelvis done that showed intra and extrahepatic biliary ductal dilation with the CBD measuring 1.6 cm in diameter and mild dilation of the pancreatic duct and hence we were consulted because of this issue. The patient this morning is feeling better. PAST MEDICAL HISTORY: Significant for hypertension, fibromyalgia, chronic back pain, degenerative joint disease and history of TIA. PAST SURGICAL HISTORY: Appendectomy, back surgery, bladder surgery, breast surgery, cholecystectomy, hysterectomy, bilateral cataract surgery, right shoulder surgery. MEDICATIONS AT HOME: Include [place], hydralazine, Toprol, baclofen, Carafate, Prilosec, Singulair, Neurontin, Detrol, Zocor, Zoloft, multivitamin, Pamelor, and aspirin. ALLERGIES: LATEX, MEPERIDINE, PENICILLIN, LYRICA, SULFA, BACTRIM. SOCIAL HISTORY: No smoking. No alcohol use. FAMILY HISTORY: Unremarkable. REVIEW OF SYSTEMS: CARDIOPULMONARY: No chest pain or shortness of breath. GENITOURINARY: No dysuria or hematuria. MUSCULOSKELETAL: Unremarkable. ENDOCRINE: Unremarkable. NEUROLOGY: Unremarkable. PSYCHIATRIC: Unremarkable. MUSCULOSKELETAL: Chronic back pain. ENT: Vision unremarkable. CONSTITUTIONAL: No recent weight loss. No fever, chills, night sweats. PHYSICAL EXAMINATION: She appears comfortable. No apparent distress. VITAL SIGNS: Stable. Temperature 98.4, pulse 80, blood pressure 198/86 and afebrile. HEENT EXAMINATION: Unremarkable. Conjunctivae pink. Sclerae anicteric. Oral cavity no lesions. Oral cavity no lesions. NECK: No JVD or lymph node enlargement. CHEST: Clear to auscultation. HEART: Regular rate and rhythm. ABDOMEN: Soft. Bowel sounds are positive. Mild tenderness in the right upper quadrant area. EXTREMITIES: No pedal edema. SKIN: No rashes. NEUROLOGIC: Alert and oriented x3. No focal deficits. LAB: Done at the time of admission hospital to the hospital: WBC 3.4, hemoglobin 11.4, platelets are normal. AST is 102, ALT is 25, alkaline phosphatase 267, total bilirubin 0.7. PT and INR is within normal limits. CT of the abdomen showed intra and extrahepatic biliary ductal dilation with common bile duct measuring 1.6 cm in diameter. Evidence of previous cholecystectomy. Compression deformity of T12 vertebra and 2.5 cm left renal mass versus . IMPRESSION: 1. This is a lady who presents with intermittent right upper quadrant abdominal pain radiating to the back for the last 6 months duration, which has been progressively getting worse in the last few days. She was noted to have mild elevation of serum transaminases and CT of the abdomen showed significant dilation of the CBD measuring 1.6 cm in diameter. At this time possibility of CBD stones cannot be entirely excluded. She is status post gallbladder surgery for symptomatic gallstones 5 years ago. 2. Chronic back pain with multiple back surgeries. RECOMMENDATION: Had a discussion with the patient, as well as the family who was at the bedside. At this time we will investigate this further. She will be scheduled for an MRCP today to evaluate the biliary system and based on that we will consider further workup. Thank you for this consultation. MMODL / IJN: [id number] /
--- NOTE | 2018-02-17 21:53 | P.GSCN ---
History of Present Illness Consult date: 02/17/18 Reason for Consult: Possible left renal mass Requesting physician: Matteo Rivas History of present illness: the patient is a 77-year-old white female admitted for evaluation of right- sided abdominal pain. The computed tomography scan has shown a questionable left renal mass, for which I have been consulted. She has an unremarkable urologic history. She has no prior history of urolithiasis, and has never previously been told that she has a renal mass. She states that she has required treatment for approximately 2 UTIs annually. Review of Systems - Constitutional Denies chills, Denies fever - Gastrointestinal Reports constipation, Reports diarrhea, Reports nausea, Denies vomiting - Genitourinary Genitourinary: Denies dysuria, Denies hematuria Past Medical History Past Medical History: Asthma, Cancer, Chest Pain / Angina, CVA/TIA, Fibromyalgia , Hyperlipidemia, Hypertension, Osteoarthritis (OA) Additional Past Medical History / Comment(s): Patient states she was admitted to [facility] in [place] for two "mini strokes" within the past month. States she was admitted for a week at a time for each "mini stroke". History of Any Multi-Drug Resistant Organisms: None Reported Past Surgical History: Appendectomy, Back Surgery, Bladder Surgery, Breast Surgery, Cholecystectomy, Heart Catheterization, Hysterectomy, Orthopedic Surgery Additional Past Surgical History / Comment(s): Skin CA removed, bladder suspension, bilat cataracts, rt foot surgery, lt wrist ganglion cystectomy, rt shoulder surgery, colonoscopy, egd, rt breast biopsy, rt knee scope, neck surgery Past Anesthesia/Blood Transfusion Reactions: No Reported Reaction Past Psychological History: No Psychological Hx Reported Smoking Status: Never smoker Past Alcohol Use History: None Reported Past Drug Use History: None Reported - Past Family History Father Family Medical History: Cancer Mother Family Medical History: Cancer Brother(s) Family Medical History: Cancer Medications and Allergies Home Medications Medication Instructions Recorded Confirmed Type Aspirin 81 mg PO BID 03/26/14 02/16/18 History Gabapentin [Neurontin] 400 mg PO BID 03/26/14 02/16/18 History Irbesartan/Hydrochlorothiazide 1 tab PO DAILY 03/26/14 02/16/18 History [[place] 150-12.5 mg Tablet] Montelukast [Singulair] 10 mg PO DAILY 03/26/14 02/16/18 History Sertraline [Zoloft] 100 mg PO DAILY 03/26/14 02/16/18 History Simvastatin [Zocor] 10 mg PO HS 03/26/14 02/16/18 History Tolterodine Tartrate [Detrol LA] 4 mg PO DAILY 03/26/14 02/16/18 History Baclofen [Lioresal] 10 mg PO TID 02/16/18 02/16/18 History HYDROcodone/APAP 5-325MG [[place] 1 tab PO Q6HR PRN 02/16/18 02/16/18 History 5-325] Metoprolol Succinate (ER) [Toprol 50 mg PO BID 02/16/18 02/16/18 History Xl] Multivitamins, Thera [Multivitamin 1 tab PO DAILY 02/16/18 02/16/18 History (formulary)] Nortriptyline [Pamelor] 25 mg PO HS 02/16/18 02/16/18 History Omeprazole [PriLOSEC] 20 mg PO AC-BID 02/16/18 02/16/18 History Sucralfate [Carafate] 1 gm PO ACHS 02/16/18 02/16/18 History hydrALAZINE HCL [Apresoline] 25 mg PO TID 02/16/18 02/16/18 History Allergies Allergy/AdvReac Type Severity Reaction Status Date / Time latex Allergy Itching Verified 02/17/18 09:25 meperidine Allergy Swelling Verified 02/17/18 09:25 Penicillins AdvReac Confusion Verified 02/17/18 09:25 pregabalin [From Lyrica] AdvReac Confusion Verified 02/17/18 09:25 Sulfa (Sulfonamide AdvReac Itching Verified 02/17/18 09:25 Antibiotics) trimethoprim AdvReac Confusion Verified 02/17/18 09:25 Surgical - Exam Vital Signs Temp Pulse Resp BP Pulse Ox 98.4 F 80 18 202/92 99 02/16/18 17:52 02/16/18 17:52 02/16/18 17:52 02/16/18 17:52 02/16/18 17:52 - General well developed, well nourished, no distress - Respiratory normal respiratory effort - Abdomen Abdomen: soft, tender (mild right upper quadrant tenderness), no guarding, no rigid, no rebound, no distended - Psychiatric oriented to time, oriented to person, oriented to place, speech is normal, memory intact Results - Labs 02/17/18 07:24 02/17/18 07:24 Abnormal Lab Results - Last 24 Hours (Table) 02/17/18 02/17/18 Range/Units 07:24 07:24 WBC 3.5 L (3.8-10.6) k/uL RBC 3.61 L (3.80-5.40) m/uL Lymphocytes # 0.7 L (1.0-4.8) k/uL Glucose 126 H (74-99) mg/dL Magnesium 1.2 L (1.6-2.3) mg/dL AST 102 H (14-36) U/L ALT 95 H (9-52) U/L Alkaline Phosphatase 267 H (38-126) U/L Total Protein 6.2 L (6.3-8.2) g/dL Diabetes panel 02/17/18 Range/Units 07:24 Sodium 144 (137-145) mmol/L Potassium 4.0 (3.5-5.1) mmol/L Chloride 105 (98-107) mmol/L Carbon Dioxide 27 (22-30) mmol/L BUN 9 (7-17) mg/dL Creatinine 0.63 (0.52-1.04) mg/dL Glucose 126 H (74-99) mg/dL Calcium 9.1 (8.4-10.2) mg/dL AST 102 H (14-36) U/L ALT 95 H (9-52) U/L Alkaline Phosphatase 267 H (38-126) U/L Total Protein 6.2 L (6.3-8.2) g/dL Albumin 3.8 (3.5-5.0) g/dL Calcium panel 02/17/18 Range/Units 07:24 Calcium 9.1 (8.4-10.2) mg/dL Albumin 3.8 (3.5-5.0) g/dL Pituitary panel 02/17/18 Range/Units 07:24 Sodium 144 (137-145) mmol/L Potassium 4.0 (3.5-5.1) mmol/L Chloride 105 (98-107) mmol/L Carbon Dioxide 27 (22-30) mmol/L BUN 9 (7-17) mg/dL Creatinine 0.63 (0.52-1.04) mg/dL Glucose 126 H (74-99) mg/dL Calcium 9.1 (8.4-10.2) mg/dL Adrenal panel 02/17/18 Range/Units 07:24 Sodium 144 (137-145) mmol/L Potassium 4.0 (3.5-5.1) mmol/L Chloride 105 (98-107) mmol/L Carbon Dioxide 27 (22-30) mmol/L BUN 9 (7-17) mg/dL Creatinine 0.63 (0.52-1.04) mg/dL Glucose 126 H (74-99) mg/dL Calcium 9.1 (8.4-10.2) mg/dL Total Bilirubin 0.5 (0.2-1.3) mg/dL AST 102 H (14-36) U/L ALT 95 H (9-52) U/L Alkaline Phosphatase 267 H (38-126) U/L Total Protein 6.2 L (6.3-8.2) g/dL Albumin 3.8 (3.5-5.0) g/dL - Imaging CT scan - abdomen: report reviewed, image reviewed Assessment and Plan (1) Left renal mass Current Visit: Yes Status: Acute Code(s): N28.89 - OTHER SPECIFIED DISORDERS OF KIDNEY AND URETER SNOMED Code(s): 913597072 Plan: The patient is a 77-year-old woman admitted for evaluation of right-sided abdominal pain. The computed tomography scan shows a possible incidental left renal mass. The lesion measures approximately 2.5 cm in diameter, and attenuates similarly to the surrounding renal parenchyma. I explained to the patient that the lesion may be malignant in nature, but that visualization of the lesion is suboptimal due to scattering resulting from the patient's lumbar fusion rods. I have suggested she undergo an MRI without and with contrast as an outpatient for further evaluation. My office will contact her to schedule the MRI and a follow-up appointment. Please notify me if I can be of any further assistance during this hospitalization. Time with Patient: Greater than 30
[2018-02-18] MEDS: HYDROmorphone 0.5 MG/0.5 ML SYRINGE IVP PRN ×2 (07:57→19:49)
[2018-02-18] MEDS: SUCRALFATE 1 GM TAB PO SCH ×4 (08:39→21:41)
[2018-02-18] MEDS: ASPIRIN 81 MG PO SCH ×2 (08:39→21:40)
[2018-02-18] MEDS: BACLOFEN 10 MG TAB PO SCH ×3 (08:40→21:41)
[2018-02-18] MEDS: GABAPENTIN 400 MG CAP PO SCH ×2 (08:40→21:40)
[2018-02-18] MEDS: ENOXAPARIN 40 MG/0.4 ML SYRINGE SQ SCH ×2 (08:40→09:11)
[2018-02-18] MEDS: hydrALAZINE HCL 25 MG TAB PO SCH ×3 (08:40→21:41)
[2018-02-18] MEDS: LOSARTAN 50 MG TAB PO SCH (08:40)
[2018-02-18] MEDS: SERTRALINE 100 MG TAB PO SCH (08:41)
[2018-02-18] MEDS: MONTELUKAST 10 MG TAB PO SCH (08:41)
[2018-02-18] MEDS: METOPROLOL SUCCINATE (ER) 50 MG TAB.ER.24H PO SCH ×2 (08:41→21:41)
[2018-02-18] MEDS: OXYBUTYNIN XL 5 MG TAB.ER.24 PO SCH (08:41)
[2018-02-18] MEDS: MAGNESIUM OXIDE 400 MG TAB PO SCH ×3 (08:41→21:42)
[2018-02-18 08:58] LABS: ALT 71 U/L (9-52); AST 58 U/L (14-36); Albumin 4.3 g/dL (3.5-5.0); Alkaline Phosphatase 236 U/L (38-126); Anion Gap 14 mmol/L; Blood Urea Nitrogen 11 mg/dL (7-17); Calcium 9.3 mg/dL (8.4-10.2); Carbon Dioxide 29 mmol/L (22-30); Chloride 106 mmol/L (98-107); Glucose 89 mg/dL (74-99); Sodium 149 mmol/L (137-145); Total Bilirubin 0.6 mg/dL (0.2-1.3); Total Protein 6.9 g/dL (6.3-8.2)
[2018-02-18] MEDS: PANTOPRAZOLE 40 MG/10 ML VIAL IVP SCH (09:11)
--- NOTE | 2018-02-18 10:54 | P.PN ---
Subjective Progress Note Date: 02/18/18 Principal diagnosis: Right upper quadrant abdominal pain biliary duct dilatation MRCP scheduled for 10:15 this morning. Still reports upper abdominal discomfort. Total bilirubin 0.6. Transaminases slightly improved AST 58. ALT 71. AP 236. Afebrile. Objective - Vital Signs Vital signs: Vital Signs Temp 98.6 F 02/18/18 07:59 Pulse 64 02/18/18 07:59 Resp 16 02/18/18 07:59 BP 171/79 02/18/18 07:59 Pulse Ox 96 02/18/18 07:59 Intake & Output 02/17/18 02/18/18 02/18/18 18:59 06:59 18:59 Intake Total 870 Balance 870 Weight 65.77 kg Intake: Intake, IV Titration 600 Amount 0.9% NaCl with KCl 20 Meq 600 /l 1,000 ml @ 50 mls/hr IV .Q20H [place] Rx#: [id number] Oral 270 Other: # Voids 2 2 1 - Exam General appearance: The patient is alert, oriented, in no acute distress. HET: Head is normocephalic and atraumatic. Pupils are equal and reactive. Oropharynx is clear without lesions. Neck: Supple without lymphadenopathy. Trachea midline. Heart: S1 S2. Regular rate and rhythm. Lungs: No crackles or wheezes are heard. Abdomen: Soft, mild midepigastric tenderness, nondistended with bowel sounds. No peritoneal signs. No palpable organomegaly or masses. Extremities: Normal skin color and turgor. No cyanosis, rash, ulceration, clubbing, or edema. Radial and pedal pulses are 2/4 bilaterally. Neurological: No focal deficits. Strength and sensation are grossly intact. - Labs CBC & Chem 7: 02/17/18 07:24 02/18/18 08:08 Labs: Abnormal Lab Results - Last 24 Hours (Table) 02/18/18 Range/Units 08:08 Sodium 149 H (137-145) mmol/L AST 58 H (14-36) U/L ALT 71 H (9-52) U/L Alkaline Phosphatase 236 H (38-126) U/L Assessment and Plan Assessment: Impression: 1. Intermittent right upper quadrant abdominal pain [address] reported significant dilation of the CBD measuring 1.6 cm history of cholecystectomy for symptomatic cholelithiasis 5 years ago due to cholelithiasis cannot be entirely excluded. 2. Chronic back pain multiple back surgeries. Plan: 1. MRCP; will review results possible ERCP. Continue to follow closely. Diet as tolerated. Nothing by mouth after midnight. Hold Lovenox tomorrow. Assessment and plan a care discussed with Dr. Durán
--- NOTE | 2018-02-18 14:30 | MR ---
EXAMINATION TYPE: MR MRCP DATE OF EXAM: 02/18/2018 COMPARISON: CT abdomen pelvis dated 02/16/2018 HISTORY: Right sided abdominal pain with nausea TECHNIQUE: Standard multiplanar, multisequence MRCP per department protocol was performed without con trast using [id number] imaging. FINDINGS: As seen on the prior CT there is smooth tapering of the distal common bile duct at the panc reatic head near the ampulla of Vater. No radiopaque obstructing calculus is seen. The common bile du ct is dilated measuring up to 1.4 cm. The common hepatic duct is pronounced with mild intrahepatic bi liary ductal dilatation. The gallbladder is surgically absent. Susceptibility artifact from gallbladd er fossa clips are noted. No ductal dilatation is seen within the pancreas. There is mild pancreatic parenchymal atrophy. The s pleen is nonenlarged. There is a dextroscoliotic curvature of the visualized lumbar spine with surgic al fixation. There is no significant signal dropout within the liver on out of phase imaging to indic ate hepatic steatosis. No focal hepatic lesion is identified. No hydronephrosis is seen within the ki dneys. Abdominal aorta appears tortuous but normal limits. The previously seen mass versus pseudomass within the left kidney is defined without contrast with focal lobulation seen on T2 axial nonfat sat image 17 and T2 axial fat sat image 17 bilaterally. Bowel is nondilated. Fracture deformity of the T 12 vertebral body is better appreciated on the prior CT but again seen. IMPRESSION: 1. Distal common bile duct stricture at the pancreatic head with extrahepatic biliary ductal dilatati on up to 1.4 cm and mild intrahepatic biliary ductal dilatation. No evidence of choledocholithiasis. 2. The previously questioned pseudomass versus mass of the left kidney is again ill-defined without c ontrast. If contrast cannot be given renal ultrasound may be of benefit.
[2018-02-18] MEDS: HYDROcodone/APAP 5-325MG 1 EACH TAB PO PRN (16:01)
[2018-02-18] MEDS: 0.9% NACL WITH KCL 20 MEQ/L 1,000 ML IV SCH (18:37)
[2018-02-18] MEDS: NORTRIPTYLINE 25 MG CAP PO SCH (21:41)
--- NOTE | 2018-02-18 22:31 | PN ---
PROGRESS NOTE DATE OF SERVICE: 02/18/2018 PRESENTING COMPLAINT: Abdominal and back pain. INTERVAL HISTORY: This patient presented with abdominal and back pain; seen by Dr. Villalobos's team; not for any further intervention. The patient will follow up with her own orthopedic surgeon. When I saw this patient earlier today she was still pending an MRCP. Later in the day patient did have an MRCP that showed common bile duct stricture. REVIEW OF SYSTEMS: Done for constitutional, cardiovascular, GI, pulmonary; relevant findings as above. Abdominal pain is still present. PHYSICAL EXAMINATION: Temperature 98.6, pulse 64, respiration 16, blood pressure 144/71, pulse ox 100% on room air. GENERAL APPEARANCE: Lying in bed, tired-appearing. EYES: Pupils equal. Conjunctivae normal. HEENT: External appearance of nose and ears normal. Oral cavity normal. NECK: JVD not raised. Mass not palpable. RESPIRATORY: Effort normal. Lungs are clear. CARDIOVASCULAR: First and second sounds normal. No edema. ABDOMEN: Some right upper abdominal tenderness. MUSCULOSKELETAL: Some pain in the lumbar spine. PSYCHIATRY: Alert and oriented x3. Mood and affect anxious-appearing. INVESTIGATIONS: AST 58, ALT 71. ASSESSMENT: 1. 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 2. Chronic fibromyalgia. 3. Chronic low back pain from multiple surgeries. 4. Essential hypertension. 5. Hyperlipidemia. 6. T12 compression fracture. 7. Left renal mass 2.5 cm for outpatient MRI with contrast to follow up with Urology. PLAN: Continue current medication and treatment plan. Await further input from Dr. Brian Durán. Will follow. MMODL / IJN: [id number] /
[2018-02-19] MEDS: HYDROcodone/APAP 5-325MG 1 EACH TAB PO PRN ×3 (02:23→14:22)
[2018-02-19 02:29] VITALS: RESP 16
[2018-02-19 06:22] LABS: ALT 61 U/L (9-52); AST 32 U/L (14-36); Albumin 3.5 g/dL (3.5-5.0); Alkaline Phosphatase 202 U/L (38-126); Anion Gap 11 mmol/L; Blood Urea Nitrogen 11 mg/dL (7-17); Calcium 8.7 mg/dL (8.4-10.2); Carbon Dioxide 27 mmol/L (22-30); Chloride 106 mmol/L (98-107); Glucose 88 mg/dL (74-99); Potassium 3.8 mmol/L (3.5-5.1); Sodium 144 mmol/L (137-145); Total Bilirubin 0.5 mg/dL (0.2-1.3); Total Protein 5.9 g/dL (6.3-8.2)
[2018-02-19] MEDS: ENOXAPARIN 40 MG/0.4 ML SYRINGE SQ SCH ×2 (06:28→08:51)
[2018-02-19 07:50] VITALS: BP 152/86; PULSE 62; TEMP 96.9
[2018-02-19] MEDS: hydrALAZINE HCL 25 MG TAB PO SCH (08:19)
[2018-02-19] MEDS: PANTOPRAZOLE 40 MG/10 ML VIAL IVP SCH (08:19)
[2018-02-19] MEDS: METOPROLOL SUCCINATE (ER) 50 MG TAB.ER.24H PO SCH (08:20)
[2018-02-19] MEDS: LOSARTAN 50 MG TAB PO SCH (08:20)
[2018-02-19] MEDS: GABAPENTIN 400 MG CAP PO SCH (08:21)
[2018-02-19] MEDS: SUCRALFATE 1 GM TAB PO SCH ×2 (08:27→12:32)
[2018-02-19] MEDS: ASPIRIN 81 MG PO SCH (08:27)
[2018-02-19] MEDS: MAGNESIUM OXIDE 400 MG TAB PO SCH (08:28)
[2018-02-19] MEDS: MONTELUKAST 10 MG TAB PO SCH (08:28)
[2018-02-19] MEDS: HYDROCHLOROTHIAZIDE 12.5 MG CAP PO SCH (08:29)
[2018-02-19] MEDS: OXYBUTYNIN XL 5 MG TAB.ER.24 PO SCH (08:29)
[2018-02-19] MEDS: SERTRALINE 100 MG TAB PO SCH (08:30)
[2018-02-19] MEDS: BACLOFEN 10 MG TAB PO SCH (08:49)
[2018-02-19] MEDS ORDERED: ENOXAPARIN 40 MG/0.4 ML SYRINGE SQ SCH (09:00)
--- NOTE | 2018-02-19 09:55 | P.PN ---
Subjective Progress Note Date: 02/19/18 Principal diagnosis: Right upper quadrant abdominal pain biliary duct dilatation MRCP distal common bile duct stricture at the pancreatic head with extrahepatic biliary duct dilatation up to 1.4 cm and mild intrahepatic biliary duct dilatation. No evidence of choledocholithiasis. Reports mild upper abdominal discomfort. LFTs improving. CA-19-9, CEA within normal limits. Afebrile. Chronic back pain. Objective - Vital Signs Vital signs: Vital Signs Temp 96.9 F L 02/19/18 07:00 Pulse 62 02/19/18 07:00 Resp 16 02/19/18 07:00 BP 152/86 02/19/18 07:00 Pulse Ox 99 02/19/18 07:00 Intake & Output 02/18/18 02/19/18 02/19/18 18:59 06:59 18:59 Intake Total 400 Output Total 500 500 Balance -500 -500 400 Intake: Oral 400 Output: Urine 500 500 Other: Voiding Method Toilet # Voids 1 1 # Bowel Movements 1 - Exam General appearance: The patient is alert, oriented, in no acute distress. HET: Head is normocephalic and atraumatic. Pupils are equal and reactive. Oropharynx is clear without lesions. Neck: Supple without lymphadenopathy. Trachea midline. Heart: S1 S2. Regular rate and rhythm. Lungs: No crackles or wheezes are heard. Abdomen: Soft, mild midepigastric tenderness, nondistended with bowel sounds. No peritoneal signs. No palpable organomegaly or masses. Extremities: Normal skin color and turgor. No cyanosis, rash, ulceration, clubbing, or edema. Radial and pedal pulses are 2/4 bilaterally. Neurological: No focal deficits. Strength and sensation are grossly intact. - Labs CBC & Chem 7: 02/17/18 07:24 02/19/18 05:44 Labs: Abnormal Lab Results - Last 24 Hours (Table) 02/19/18 Range/Units 05:44 ALT 61 H (9-52) U/L Alkaline Phosphatase 202 H (38-126) U/L Total Protein 5.9 L (6.3-8.2) g/dL Assessment and Plan Assessment: Impression: 1. Intermittent right upper quadrant abdominal pain [address] reported significant dilation of the CBD measuring 1.6 cm history of cholecystectomy for symptomatic cholelithiasis 5 years ago due to cholelithiasis cannot be entirely excluded. MRCP redemonstrated distal common bile duct stricture near the pancreatic head/ampulla without evidence of choledocholithiasis with extra hepatic biliary dilatation 1.4 cm as well as mild intra-hepatic biliary dilatation. Liver function tests improving without jaundice. Right upper quadrant abdominal pain not likely related to CBD stricture. 2. Chronic back pain multiple back surgeries. Plan: 1. MRCP results discussed with patient and her daughter as well as CEA and CA- 19-9 results. Inpatient ERCP not recommended at this time. Recommend tertiary outpatient endoscopic ultrasound. GI office will assist with scheduling. Diet as tolerated. Discharge per medicine. Repeat CMP 5-7 days. All questions were answered to patient and her daughter's satisfaction. Return to office in 3 -4 weeks for reevaluation. Assessment and plan of care discussed with Dr. Durán
--- NOTE | 2018-02-20 10:18 | DS ---
DISCHARGE SUMMARY DATE OF ADMISSION: 02/17/2018. DATE OF DISCHARGE: 02/19/2018. FINAL DIAGNOSES: 1. Common bile duct stricture. 2. Chronic fibromyalgia. 3. Chronic low back pain from multiple surgeries. 4. Essential hypertension. 5. Hyperlipidemia. 6. T12 compression fracture, chronic, possibly from osteopenia. 7. Left renal mass 2.5 cm per outpatient MRI. Follow up with Urology. HOSPITAL COURSE: This is a pleasant 77-year-old patient with multiple lower back surgeries, being followed by Dr. Kwon. The patient presented with lower back pain and upper quadrant pain. It was not entirely clear if the pain was purely from her back or in the right upper quadrant. The patient was seen by Dr. Villalobos from [facility]. At this point, no further intervention from their standpoint. Seen by Dr. Durán from GI. MRCP was done that did show a common bile duct stricture. The patient, because of the endoscopic ultrasound, they are arranging for an outpatient followup. The patient also had a questionable left renal mass on the left side, 2.[address] Mckinley who will follow up the patient as an outpatient and may do further radiological studies. The day of discharge I did talk to the patient. The patient is feeling more comfortable, better, tolerating some diet. EXAM: Abdomen soft, nontender. Psych AO x3. The patient's AST is 32, ALT 61, bilirubin is 0.5. DISCHARGE MEDICATIONS: 1. Aspirin 81 mg b.i.d. 2. Neurontin 400 mg p.o. b.i.d. 3. Avalide 450/12.5 one tab p.o. daily. 4. Singulair 10 mg p.o. daily. 5. Zoloft 100 mg p.o. daily. 6. Zocor 10 mg at bedtime. 7. Detrol LA 4 mg p.o. daily. 8. Baclofen 10 mg p.o. t.i.d. 9. Jordan 5 one tab every 6 hours p.r.n. 10.Toprol-XL 50 mg p.o. b.i.d. 11.Multivitamin 1 tablet p.o. daily. 12.Pamelor 25 mg at bedtime. 13.Prilosec 20 mg p.o. b.i.d. 14.Carafate 1 g p.o. with meals and at bedtime. 15.Hydralazine 25 mg p.o. t.i.d. DISPOSITION: Home. FOLLOWUP: Follow up with Dr. Kwon in 1 week. Follow up with Dr. Mckinley in 2 weeks. Follow up with Dr. Juan Durán on 04/08/2018. The patient is also to follow up with her orthopedic spine surgeon that she knows. MMELAINEL / LINDAN: [id number] /
== END 2018-02-19 15:50 | disposition home or self-care (01) | DRG 445 ==
LOC: EC 17:44 → 3SUR 22:40 → OBSVTOIN 02-17 15:20 → 6PED 02-18 09:35
PROVIDERS: ADMIT Hospitalist; ATTEND Hospitalist
DX: K83.1 Obstruction of bile duct (principal); I69.354 Hemiplegia and hemiparesis following cerebral infarction affecting left non-dominant side; M48.54XA Collapsed vertebra, not elsewhere classified, thoracic region, initial encounter for fracture; E78.5 Hyperlipidemia, unspecified; G89.29 Other chronic pain; I10 Essential (primary) hypertension; J45.909 Unspecified asthma, uncomplicated; M19.91 Primary osteoarthritis, unspecified site; M41.80 Other forms of scoliosis, site unspecified; M43.16 Spondylolisthesis, lumbar region; M43.17 Spondylolisthesis, lumbosacral region; M51.16 Intervertebral disc disorders with radiculopathy, lumbar region; M79.7 Fibromyalgia; N28.89 Other specified disorders of kidney and ureter; Z79.82 Long term (current) use of aspirin; Z79.899 Other long term (current) drug therapy; Z85.828 Personal history of other malignant neoplasm of skin; Z90.49 Acquired absence of other specified parts of digestive tract; Z90.710 Acquired absence of both cervix and uterus; Z98.1 Arthrodesis status; Z79.891 Long term (current) use of opiate analgesic; Z79.51 Long term (current) use of inhaled steroids; Z88.0 Allergy status to penicillin; Z88.2 Allergy status to sulfonamides; Z88.8 Allergy status to other drugs, medicaments and biological substances; Z91.040 Latex allergy status
CPT/HCPCS: 36415; 74018; 74177; 74181; 80053; 81001; 82150; 82378; 83605; 83690; 83735; 85025; 85610; 85730; 86301; 96374; 96375; 99285

== ENCOUNTER → 2018-03-19 | Outpatient (CLI) | payer MEDICARE ==
--- NOTE | 2018-03-20 06:24 | MR ---
EXAMINATION TYPE: MR kidney wo/w con DATE OF EXAM: 03/19/2018 COMPARISON: HISTORY: Left renal mass, Abnormal MR in pacs CONTRAST: Standard multiplanar, multisequence MRI departmental protocol utilizing 6.5 mL intravenous Gadavist g adolinium contrast. FINDINGS: The liver shows no focal defect. There is a large common bile duct that measures up to 1.8 cm. I see no filling defect in the distal common bile duct. There is no evidence of a pancreatic mass . Pancreatic duct appears normal. There is no evidence of a splenic mass. Kidneys have normal size. There is some bulging of the lateral cortex of the upper pole left kidney. This area appears to show equal enhancement with adjacent renal cortex on the contrast images. There is no hydronephrosis. There is no evidence of retroperitoneal adenopathy. There is no ascites. Ureter s are not dilated. There is no distortion of the renal calyces. IMPRESSION: The kidneys appear within normal limits. There is bulging contour of the left kidney with pseudomass. No evidence of a renal tumor. There is mildly dilated common bile duct there is unchanged compared t o 02/18/2018 MRCP exam.
== END | disposition home or self-care (01) ==
LOC: RADMRIMAIN 16:56
PROVIDERS: ATTEND Urology
DX: K83.8 Other specified diseases of biliary tract (principal)
CPT/HCPCS: 74183; A9581

== ENCOUNTER → 2018-07-28 | Outpatient (CLI) | payer MEDICARE ==
[2018-07-28 16:21] LABS: Anion Gap 5.4 mmol/L (4.00-12.00); Calcium 9.5 mg/dL (8.7-10.3); Carbon Dioxide 31.6 mmol/L (21.6-31.8); Magnesium 1.8 mg/dL (1.5-2.4); Potassium 3.4 mmol/L (3.5-5.5)
== END | disposition home or self-care (01) ==
LOC: LABWHC1 10:54
PROVIDERS: ATTEND Internal Medicine Interventional Cardiology
DX: I27.20 Pulmonary hypertension, unspecified (principal)
CPT/HCPCS: 36415; 80048; 83735

== ENCOUNTER → 2018-09-15 | Outpatient (CLI) | payer MEDICARE | END | disposition home or self-care (01) | LOC: LABWHC1 09:41 | PROVIDERS: ATTEND Nurse Practitioner Acute Care | DX: Z01.812 Encounter for preprocedural laboratory examination (principal) | CPT/HCPCS: 36415; 82565; 84520 ==

== ENCOUNTER 2018-12-22 11:57 | Emergency (ER) | payer MEDICARE ==
[2018-12-22 12:01] VITALS: RESP 18
--- NOTE | 2018-12-22 12:05 | ED ---
Extremity Problem HPI - General Chief complaint: Extremity Problem,Nontraumatic Stated complaint: leg pain/keeps falling Time Seen by Provider: 12/22/18 12:03 Source: patient Mode of arrival: wheelchair Limitations: no limitations - History of Present Illness Initial comments: 78-year-old female presents today for chief complaint of left leg giving out, pt has history of HTN, previous CVA with left sided deficits (weakness). Patient states she has had chronic back pain for years, she states she is followed by neurologist Dr. Marquez She states she had a pain pump placed Saturday for chronic pain of morphine sulfate. Patient states since placement she has not had pain. However for the past 2-3 weeks she has had increasing falls, denies any injury to head neck or extremities. Patient states she is unsure if this is due to her back or her knee, she states she has had chronic crepitus in her left knee and states she feels this may be a possible source of instability and her left leg giving out. Denies swelling or erythema of knee. Patient denies any recent injury or trauma to the knee. Patient states the past 5 years she has had issue with both bowel and bladder control, she states her neurologist is aware of this and she denies any acute changes within the last 2-3 months. Patient denies any loss of sensation of the lower extremities, fever, nightsweats, chills, IV drug use. She states she contacted Dr. Marquez who recommended presentation for CT imaging studies to ensure proper placement of the device. Remaining review of systems negative, any recent shortness of breath, chest pain, back pain, abdominal pain, nausea or vomiting, numbness, dysuria or hematuria, constipation or diarrhea, headaches, speech changes, weakness of the upper extremities, or visual changes, or any other complaints. Upon arrival vital signs within normal limits. - Related Data Home Medications Medication Instructions Recorded Confirmed Aspirin 81 mg PO BID 03/26/14 02/16/18 Gabapentin [Neurontin] 400 mg PO BID 03/26/14 02/16/18 Irbesartan/Hydrochlorothiazide 1 tab PO DAILY 03/26/14 02/16/18 [Avalide 150-12.5 mg Tablet] Montelukast [Singulair] 10 mg PO DAILY 03/26/14 02/16/18 Sertraline [Zoloft] 100 mg PO DAILY 03/26/14 02/16/18 Simvastatin [Zocor] 10 mg PO HS 03/26/14 02/16/18 Tolterodine Tartrate [Detrol LA] 4 mg PO DAILY 03/26/14 02/16/18 Baclofen [Lioresal] 10 mg PO TID 02/16/18 02/16/18 HYDROcodone/APAP 5-325MG [[place]on 1 tab PO Q6HR PRN 02/16/18 02/16/18 5-325] Metoprolol Succinate (ER) [Toprol 50 mg PO BID 02/16/18 02/16/18 XL] Multivitamins, Thera [Multivitamin 1 tab PO DAILY 02/16/18 02/16/18 (formulary)] Nortriptyline [Pamelor] 25 mg PO HS 02/16/18 02/16/18 Omeprazole [PriLOSEC] 20 mg PO AC-BID 02/16/18 02/16/18 Sucralfate [Carafate] 1 gm PO ACHS 02/16/18 02/16/18 hydrALAZINE HCL [Apresoline] 25 mg PO TID 02/16/18 02/16/18 Allergies Allergy/AdvReac Type Severity Reaction Status Date / Time latex Allergy Itching Verified 02/17/18 09:25 meperidine Allergy Swelling Verified 02/17/18 09:25 Penicillins AdvReac Confusion Verified 02/17/18 09:25 pregabalin [From Lyrica] AdvReac Confusion Verified 02/17/18 09:25 Sulfa (Sulfonamide AdvReac Itching Verified 02/17/18 09:25 Antibiotics) trimethoprim AdvReac Confusion Verified 02/17/18 09:25 Review of Systems ROS Statement: Those systems with pertinent positive or pertinent negative responses have been documented in the HPI. ROS Other: All systems not noted in ROS Statement are negative. Past Medical History Past Medical History: Asthma, Cancer, Chest Pain / Angina, CVA/TIA, Fibromyalgia, Hyperlipidemia, Hypertension, Osteoarthritis (OA) Additional Past Medical History / Comment(s): Patient states she was admitted to [facility] in [place] for two "mini strokes" within the past month. States she was admitted for a week at a time for each "mini stroke". History of Any Multi-Drug Resistant Organisms: None Reported Past Surgical History: Appendectomy, Back Surgery, Bladder Surgery, Breast Surgery, Cholecystectomy, Heart Catheterization, Hysterectomy, Orthopedic Surgery Additional Past Surgical History / Comment(s): Skin CA removed, bladder suspension, bilat cataracts, rt foot surgery, lt wrist ganglion cystectomy, rt shoulder surgery, colonoscopy, egd, rt breast biopsy, rt knee scope, neck surgery Past Anesthesia/Blood Transfusion Reactions: No Reported Reaction Past Psychological History: No Psychological Hx Reported Smoking Status: Never smoker Past Alcohol Use History: None Reported Past Drug Use History: None Reported - Past Family History Father Family Medical History: Cancer Mother Family Medical History: Cancer Brother(s) Family Medical History: Cancer General Exam - General Exam Comments Initial Comments: General: The patient is awake and alert, in no distress, and does not appear acutely ill. Eye: Pupils are equal, round and reactive to light, extra-ocular movements are intact. No nystagmus. There is normal conjunctiva bilaterally. No signs of icterus. Ears, nose, mouth and throat: There are moist mucous membranes and no oral lesions. Neck: The neck is supple, there is no tenderness or JVD. Cardiovascular: There is a regular rate and rhythm. No murmur, rub or gallop is appreciated. Respiratory: Lungs are clear to auscultation, respirations are non-labored, breath sounds are equal. No wheezes, stridor, rales, or rhonchi. Gastrointestinal: Incision, non erythematous, no drainage, or pain to palpation. NO warmth to palpation. Soft, non-distended, non-tender abdomen without masses or organomegaly noted. There is no rebound or guarding present. Musculoskeletal: Upon inspection of the back there is palpable cord stretching subcutaneously from abdomen to lumbar spine. Small amount of bruising. Multiple incision, no drainage or erythema, no pain or warmth to palpation. Normal ROM, no tenderness of the lumbar spine, hips. Crepitus with ROM of the left knee. Strength 4/5 in the left LE, 5/5 right LE. Sensation intact of the lower extremities including the saddle region b/l. DP pulses equal bilaterally 2+. Neurological: A&O x 3. CN II-XII intact, There are no obvious motor or sensory deficits. Coordination appears grossly intact. Speech is normal. Skin: Skin is warm and dry and no rashes or lesions are noted. Psychiatric: Cooperative, appropriate mood & affect, normal judgment. Limitations: no limitations Course Vital Signs 12/22/18 11:59 Temperature 98.0 F Pulse Rate 73 Respiratory 18 Rate Blood Pressure 140/63 O2 Sat by Pulse 96 Oximetry - Reevaluation(s) Reevaluation #1: I contacted Dr. Marquez speaking with him directly. I discussed imaging studies including endplate fracture L1. He feels this is subacute when comparing with o ld imaging study readings. Patient denies constitutional symptoms. I described patient's presentation. He states is at his baseline left lower extremity weakness. After discussing physical examination as well as imaging study findings Dr. Marquez recommends discharge with outpatient f/u on 01/05/19. Medical Decision Making - Medical Decision Making 78-year-old female presenting today for chief complaint of left leg giving out for greater than 2 weeks, patient states more chronic in nature opposed to increasing since pain pump. Denies pain. Denies sensation loss or significant increase in weakness from baseline she states has been ongoing for years, she states she has done physical therapy for this complaint in the past. Patient states she has walker at home. After speaking with Dr. Marquez he is comfortable with discharge and outpatient-he stated patient has baseline left leg weakness, f/u given patient current presentation and imaging studies. I am agreeable. Patient states there has been left leg weakness chronically for years. I recommended outpatient follow-up with primary care provider one to 2 days including consideration of subacute rehabilitation and continued physical therapy. Patient is agreeable to care plan as well as discharge. Return parameters were discussed at length. Pt discharged appearing well after reviewing imaging studies ad discussing case in detail with Dr. Quintanilla attending provider. Disposition Clinical Impression: Left leg weakness Disposition: HOME SELF-CARE Condition: Good Instructions (If sedation given, give patient instructions): Fall Prevention for Older Adults (ED) Additional Instructions: Please use medication as discussed. Please follow-up with family doctor in the next 24-48 hours, I would discuss at this time options of subacute rehabilitation or physical therapy. Please follow-up with Dr. Marquez 01/05/19 as discussed. Please return to emergency room if the symptoms increase or worsen or for any other concerns. Is patient prescribed a controlled substance at d/c from ED?: No Referrals: Fernando Kwon MD [Primary Care Provider] - 1-2 days Time of Disposition: 13:47
--- NOTE | 2018-12-22 13:14 | CT ---
EXAMINATION TYPE: CT thor lumbar spine wo con DATE OF EXAM: 12/22/2018 COMPARISON: CT abdomen pelvis February 17, 2008 HISTORY: back pain, recent pain pump insertion CT DLP: 687.2 mGycm Automated exposure control for dose reduction was used. FINDINGS: There is persistent dextroconvex scoliosis centered L3 level. There are persistent posterior interped icular rods and screws with artificial disc material L3-L4 level. There is stable grade 1 anterolisth esis of L5 on S1 measured 6 to 7 mm sagittal image 32. There is stable moderate disc space narrowing L4-L5 level. Moderate to advanced disc space narrowing with endplate sclerosis and severe lateral spu rring left L2-L3 level is redemonstrated. There is increasing left lateral step-off of L1 on L2 with mild to moderate fracture involving the superior endplate extending to right endplate that is fairly sclerotic suggesting subacute in age. Demineralization is present. There is partial visualization ant erior fusion plate extending into the upper thoracic spine terminating at T3 level. There is new stim ulator device in the posterior soft tissue the upper lumbar spine entering spinal canal at L1-L2 leve l and terminating posteriorly to left of midline in the mid to lower thoracic spinal canal. Mild to moderate biapical pleural/parenchymal scarring is present. Coronary artery calcification is s een which is noted marked underlying coronary artery disease. Eventration of right hemidiaphragm is s een. There is suggestion of new right basilar subpleural 11 x 10 mm nodule axial image 65. Consider P ET/CT follow-up. Cholecystectomy clips are redemonstrated. There is advanced facet arthropathy in the lumbar spine. There is evidence of prior laminectomy defects and spinous process resection with some scattered posterior calcifications or ossifications presumed heterotopic in etiology. Recently inges hola radiodense process suspected dependently in stomach. IMPRESSION: SUSPECTED MILD TO MODERATE SUBACUTE FRACTURE DEFORMITY THROUGH THE L1 VERTEBRA INVOLVING ANTERIOR SUP ERIOR RIGHT ENDPLATE IMMEDIATELY ADJACENT TO THE LEVEL OF SURGICAL CHANGE. SUSPECT NEW 1.0 CM RIGHT B ASILAR PULMONARY NODULE. ADVISE NONEMERGENT PET CT FOLLOW-UP.
[2018-12-22 13:56] VITALS: BP 161/75; PULSE 64; TEMP 97.6
== END 2018-12-22 13:56 | disposition home or self-care (01) ==
LOC: EC 11:57
DX: I69.354 Hemiplegia and hemiparesis following cerebral infarction affecting left non-dominant side (principal); M23.8X2 Other internal derangements of left knee; R58 Hemorrhage, not elsewhere classified; M54.9 Dorsalgia, unspecified; G89.29 Other chronic pain; J45.909 Unspecified asthma, uncomplicated; E78.5 Hyperlipidemia, unspecified; I10 Essential (primary) hypertension; M19.90 Unspecified osteoarthritis, unspecified site; M79.7 Fibromyalgia; Z88.0 Allergy status to penicillin; Z88.2 Allergy status to sulfonamides; Z88.5 Allergy status to narcotic agent; Z88.8 Allergy status to other drugs, medicaments and biological substances; Z91.040 Latex allergy status; Z79.82 Long term (current) use of aspirin; Z79.899 Other long term (current) drug therapy; Z95.818 Presence of other cardiac implants and grafts; Z85.828 Personal history of other malignant neoplasm of skin; Z96.89 Presence of other specified functional implants; Z98.890 Other specified postprocedural states
CPT/HCPCS: 72128; 72131; 99283

== ENCOUNTER 2020-05-03 17:15 | Observation (INO) | payer MEDICARE ==
--- NOTE | 2020-05-03 17:29 | ED ---
Chest Pain HPI - General Chief Complaint: Chest Pain Stated Complaint: Chest pain Time Seen by Provider: 05/03/20 17:20 Source: EMS Mode of arrival: EMS Limitations: no limitations - History of Present Illness Initial Comments: Patient is a 79-year-old female presents emergency room with reported chest pain. States that she was a passenger in a car with her when she had sudden onset of chest pain. Reports that he was in the epigastric region and radiated up to her carotids. Pain was 10 out of 10. She does have angina therefore took one of her nitro. States she had no relief in her symptoms. called EMS. They gave her 324 mg of aspirin which brought her pain down to a 5. By the time the patient got to the hospital, her pain was gone. Denies previous history of coronary disease. No associated nausea, vomiting or diaphoresis. Denies shortness of breath. No ripping or tearing sensation to her back. Denies lower trauma swelling. No history of DVT or PE. No other alleviating, precipitating or modifying factors - Related Data Home Medications Medication Instructions Recorded Confirmed Montelukast [Singulair] 10 mg PO DAILY 03/26/14 05/03/20 Sertraline [Zoloft] 100 mg PO DAILY 03/26/14 05/03/20 Simvastatin [Zocor] 40 mg PO HS 03/26/14 05/03/20 Metoprolol Succinate (ER) [Toprol 50 mg PO DAILY 02/16/18 05/03/20 XL] Multivitamins, Thera [Multivitamin 1 tab PO DAILY 02/16/18 05/03/20 (formulary)] Nortriptyline [Pamelor] 25 mg PO HS 02/16/18 05/03/20 Sucralfate [Carafate] 1 gm PO ACHS 02/16/18 05/03/20 Clopidogrel Bisulfate [Plavix] 75 mg PO DAILY 07/15/19 05/03/20 Fluticasone Nasal [place] [Flonase 2 spray NASAL DIRECTED 07/15/19 05/03/20 Nasal [place]] Furosemide [Lasix] 40 mg PO DAILY 07/15/19 05/03/20 Nitroglycerin 0.4 mg SL DIRECTED PRN 07/15/19 05/03/20 Pantoprazole Sodium [Protonix] 20 mg PO DAILY 07/15/19 05/03/20 Potassium Chloride ER [K-Dur 10] 10 meq PO DAILY 07/15/19 05/03/20 cycloSPORINE 0.05% OPHTH SOLN 1 drop BOTH EYES BID PRN 07/15/19 05/03/20 [Restasis] traMADol HCl [Ultram] 50 mg PO BID PRN 07/15/19 05/03/20 Baclofen [Lioresal] 10 mg PO Q8H PRN 05/03/20 05/03/20 Gabapentin [Neurontin] 100 mg PO TID PRN 05/03/20 05/03/20 Ibuprofen [Advil] 400 mg PO DAILY PRN 05/03/20 05/03/20 Morphine Pain Pump (Unknown Dose) 1 dose INTRATHECA CONTINUOUS 05/03/20 05/03/20 Allergies Allergy/AdvReac Type Severity Reaction Status Date / Time latex Allergy Itching Verified 05/03/20 19:23 meperidine Allergy Swelling Verified 05/03/20 19:23 Penicillins AdvReac Confusion Verified 05/03/20 19:23 pregabalin [From Lyrica] AdvReac Confusion Verified 05/03/20 19:23 Sulfa (Sulfonamide AdvReac Itching Verified 05/03/20 19:23 Antibiotics) trimethoprim AdvReac Confusion Verified 05/03/20 19:23 Review of Systems ROS Statement: Those systems with pertinent positive or pertinent negative responses have been documented in the HPI. ROS Other: All systems not noted in ROS Statement are negative. EKG Findings - EKG Comments: EKG Findings:: EKG demonstrates a normal since rhythm with ventricular rate of 72. LA 170. QRS 80. QTC of 470. ST depression in 2, 3, aVF as well as V4 through V6 Past Medical History Past Medical History: Asthma, Cancer, Chest Pain / Angina, CVA/TIA, Fibr omyalgia, Hyperlipidemia, Hypertension, Osteoarthritis (OA), Sleep Apnea/CPAP/BIPAP Additional Past Medical History / Comment(s): OPTIC NEURITIS. CHRONIC PAIN-PAIN PUMP History of Any Multi-Drug Resistant Organisms: None Reported Past Surgical History: Appendectomy, Back Surgery, Bladder Surgery, Breast Surgery, Cholecystectomy, Heart Catheterization, Hysterectomy, Orthopedic Surgery Additional Past Surgical History / Comment(s): Skin CA removed, bladder suspension, bilat cataracts, rt foot surgery, lt wrist ganglion cystectomy, rt shoulder surgery, colonoscopy, egd, rt breast biopsy, rt knee scope, neck surgery. PAIN PUMP Past Anesthesia/Blood Transfusion Reactions: No Reported Reaction Past Psychological History: No Psychological Hx Reported Past Alcohol Use History: None Reported Past Drug Use History: None Reported - Past Family History Father Family Medical History: Cancer Mother Family Medical History: Cancer Brother(s) Family Medical History: Cancer General Exam Limitations: no limitations General appearance: alert, in no apparent distress Head exam: Present: atraumatic, normocephalic, normal inspection Eye exam: Present: normal appearance, PERRL, EOMI. Absent: scleral icterus, conjunctival injection, periorbital swelling ENT exam: Present: normal exam, mucous membranes moist Neck exam: Present: normal inspection. Absent: tenderness, meningismus, lymphadenopathy Respiratory exam: Present: normal lung sounds bilaterally. Absent: respiratory distress, wheezes, rales, rhonchi, stridor Cardiovascular Exam: Present: regular rate, normal rhythm, normal heart sounds. Absent: systolic murmur, diastolic murmur, rubs, gallop, clicks GI/Abdominal exam: Present: soft, normal bowel sounds. Absent: distended, tenderness, guarding, rebound, rigid Extremities exam: Present: normal inspection, full ROM, normal capillary refill. Absent: tenderness, pedal edema, joint swelling, calf tenderness Back exam: Present: normal inspection Neurological exam: Present: alert, oriented X3, CN II-XII intact Psychiatric exam: Present: normal affect, normal mood Skin exam: Present: warm, dry, intact, normal color. Absent: rash Course Vital Signs 05/03/20 05/03/20 17:18 18:35 Temperature 98 F Pulse Rate 80 67 Respiratory 18 18 Rate Blood Pressure 174/88 148/79 O2 Sat by Pulse 100 100 Oximetry Chest Pain MDM - MDM Upon arrival patient placed in room 5. A thorough history and physical exam was performed. 12-lead EKG was performed which does demonstrate ST depression in the inferior and lateral leads. Patient pain free at this time. There are traces are conduct and the patient is a chest x-ray performed. First troponin is negative. Due to the patient's chest pain with abnormal EKG I did recommend hospital admission for which the patient did agree. I discussed the case with Dr. Rivas who agreed to admission. Patient was taken to floor in stable condition Disposition Clinical Impression: Chest pain, ST segment changes on electrocardiogram Disposition: ADMITTED IP TO THIS HOSP Condition: Stable Is patient prescribed a controlled substance at d/c from ED?: No Decision to Admit Reason: Admit from EC Decision Date: 05/03/20 Decision Time: 18:53
[2020-05-03 17:50] LABS: Basophils % (A) 1 %; Eosinophils % (A) 1 %; HCT 32.8 % (34.0-46.0); HGB 10.6 gm/dL (11.4-16.0); Lymphocytes # (A) 1.1 k/uL (1.0-4.8); Lymphocytes % (A) 26 %; MCH 28.8 pg (25.0-35.0); MCHC 32.4 g/dL (31.0-37.0); MCV 88.9 fL (80.0-100.0); Mean Platelet Volume 7.9; Monocytes # (A) 0.3 k/uL (0-1.0); Monocytes % (A) 7 %; Neutrophils # (A) 2.7 k/uL (1.3-7.7); Neutrophils % (A) 63 %; Platelet Count 166 k/uL (150-450); RBC 3.69 m/uL (3.80-5.40); RDW 13.3 % (11.5-15.5); WBC 4.3 k/uL (3.8-10.6)
--- NOTE | 2020-05-03 18:02 | XR ---
EXAMINATION TYPE: XR chest 2V DATE OF EXAM: 05/03/2020 COMPARISON: 04/05/2014 HISTORY: Shortness of breath TECHNIQUE: Frontal and lateral views of the chest are obtained. FINDINGS: Scattered senescent parenchymal changes noted Right infrahilar infiltrate may reflect developing pneumonia. Correlate clinically. Heart size is stable. Mediastinal structures are stable and grossly unremarkable. No evidence for hilar prominence. Degenerative changes dorsal spine. IMPRESSION: 1. Right infrahilar infiltrate may reflect developing pneumonia. Correlate clinically.
[2020-05-03 18:04] LABS: Albumin 4.3 g/dL (3.5-5.0); Calcium 9.1 mg/dL (8.4-10.2); Magnesium 1.8 mg/dL (1.6-2.3); Potassium 3.6 mmol/L (3.5-5.1); Total Bilirubin 0.3 mg/dL (0.2-1.3); Total Protein 6.7 g/dL (6.3-8.2)
[2020-05-03 18:06] LABS: Partial Thromboplastin Time 23.9 sec (22.0-30.0); Prothrombin Time 10.2 sec (9.0-12.0)
[2020-05-03] MEDS ORDERED: NALOXONE 0.4 MG/ML 1 ML VIAL IV PRN (18:53)
[2020-05-03] MEDS ORDERED: NITROGLYCERIN SL TABS 0.4 MG TAB SUBLINGUAL PRN (20:39)
[2020-05-03] MEDS ORDERED: ATORVASTATIN 20 MG TAB PO SCH (21:00)
[2020-05-03] MEDS ORDERED: NORTRIPTYLINE 25 MG CAP PO SCH (21:00)
[2020-05-03] MEDS: SUCRALFATE 1 GM TAB PO SCH (21:25)
[2020-05-03] MEDS: traMADol 50 MG TAB PO PRN (21:25)
[2020-05-03] MEDS: MONTELUKAST 10 MG TAB PO SCH (21:27)
[2020-05-03] MEDS: cycloSPORINE 0.05% OPHTH 0.4 ML DROPERETTE BOTH EYES SCH (21:58)
[2020-05-04] MEDS: traMADol 50 MG TAB PO PRN (04:38)
[2020-05-04] MEDS: SUCRALFATE 1 GM TAB PO SCH ×2 (06:28→13:03)
[2020-05-04] MEDS ORDERED: PANTOPRAZOLE 40 MG TABLET PO SCH (07:30)
[2020-05-04 07:37] LABS: Basophils % (A) 0 %; Eosinophils # (A) 0.1 k/uL (0-0.7); Eosinophils % (A) 2 %; HCT 32.9 % (34.0-46.0); HGB 10.5 gm/dL (11.4-16.0); Lymphocytes # (A) 1.2 k/uL (1.0-4.8); Lymphocytes % (A) 27 %; MCH 28.3 pg (25.0-35.0); MCHC 31.8 g/dL (31.0-37.0); MCV 89.1 fL (80.0-100.0); Mean Platelet Volume 7.7; Monocytes # (A) 0.3 k/uL (0-1.0); Monocytes % (A) 6 %; Neutrophils # (A) 2.6 k/uL (1.3-7.7); Neutrophils % (A) 61 %; Platelet Count 149 k/uL (150-450); RDW 13.1 % (11.5-15.5); WBC 4.3 k/uL (3.8-10.6)
[2020-05-04] MEDS ORDERED: DOBUTamine DRIP for NUC MED 500 MG in DEXTROSE/WATER 1 250ML.BAG IV ONE (07:49)
[2020-05-04 07:52] LABS: African American GFR (CKD) >90 (>60 ml/min/1.73 sqM); Anion Gap 5 mmol/L; Blood Urea Nitrogen 16 mg/dL (7-17); Calcium 8.6 mg/dL (8.4-10.2); Carbon Dioxide 31 mmol/L (22-30); Chloride 103 mmol/L (98-107); Glucose 79 mg/dL (74-99); Non-African American GFR(CKD) 81 (>60 ml/min/1.73 sqM); Potassium 3.5 mmol/L (3.5-5.1); Sodium 139 mmol/L (137-145)
[2020-05-04 08:24] VITALS: TEMP 98.1
[2020-05-04] MEDS: cycloSPORINE 0.05% OPHTH 0.4 ML DROPERETTE BOTH EYES SCH (08:57)
[2020-05-04] MEDS ORDERED: CLOPIDOGREL 75 MG TAB PO SCH (09:00)
[2020-05-04] MEDS ORDERED: FUROSEMIDE 40 MG TAB PO SCH (09:00)
[2020-05-04] MEDS ORDERED: FLUTICASONE 50MCG/SPRAY NASAL 16GM NASAL PRN (09:00)
[2020-05-04] MEDS ORDERED: MULTIVITAMINS, THERA 1 EACH TAB PO SCH (09:00)
[2020-05-04] MEDS ORDERED: SERTRALINE 100 MG TAB PO SCH (09:00)
[2020-05-04] MEDS ORDERED: METOPROLOL SUCCINATE (ER) 50 MG TAB.ER.24H PO SCH (09:00)
[2020-05-04] MEDS ORDERED: POTASSIUM CHLORIDE ER 10 MEQ TAB.ER.PRT PO SCH (09:00)
--- NOTE | 2020-05-04 11:13 | CONS ---
CONSULTATION Mrs Unger is a 79-year-old female with a history of stroke, history of hyperlipidemia and hypertension who is followed by Dr. Jules Lopez and presented with symptoms of chest discomfort, radiating to the neck. The discomfort occurred while she was getting ready to do go to [place] to visit family for 3 weeks. Patient took a nitroglycerin with some improvement. The patient has underwent prior cardiac catheterization. According to her, had no significant obstructive disease. The discomfort in the chest was not related to physical activity. She is quite inactive physically because of severe back discomfort. She denies any dizziness or palpitation. She had no syncope. She has chronic peripheral edema. Her coronary risk factors as noted for the hypertension, hyperlipidemia. She is nondiabetic nonsmoker. MEDICATIONS: Include baclofen, Plavix, Lasix 40 mg daily, Toprol-XL 50 mg daily, Singulair, Pamelor, Protonix, Zoloft, simvastatin 40 mg daily, Tramadol and Advil. REVIEW OF SYSTEMS: RESPIRATORY SYSTEM: She has no documented history of asthma, emphysema or bronchitis. GI SYSTEM: She has no recent nausea and vomiting. No GI bleeding. SYSTEM: No dysuria or hematuria. NERVOUS SYSTEM: She had a prior history of stroke. PHYSICAL EXAMINATION: She is a 79-year-old female, alert, oriented, in no apparent distress. Blood pressure running in the 140s to 160s with a heart rate in the 70s. HEAD: Normocephalic. EYES: Sclerae nonicteric. NECK: Good upstroke with bilateral bruit. LUNGS: Clear to auscultation. HEART: Regular rate and rhythm, S1, S2. No S3 with systolic murmur, 2/6 early peaking heard at the base. No diastolic murmur, no rub. ABDOMEN: Soft, nontender, positive bowel sounds, no organomegaly. EXTREMITIES: +1 edema bilaterally. LAB DATA: Revealed troponin less than 0.012, 0.014 and 0.017. Lipase of 322. BUN and creatinine 16 and 0.72, potassium 3.5, hemoglobin of 10.5. EKG revealed a sinus mechanism, normal axis and intervals with minor nonspecific ST-T wave changes. Chest x-ray showed right infrahilar infiltrate. IMPRESSION: 1. Chest discomfort radiating to the neck, it could be angina in origin. Patient according to her, had no evidence of documented obstructive coronary artery disease. 2. History of hypertension. 3. Prior history of stroke. 4. Hyperlipidemia. 5. Elevation of the lipase. 6. Severe back discomfort. RECOMMENDATION: I have recommended to obtain echocardiogram with Doppler to evaluate the left ventricular systolic function. I will also obtain a stress test and there is no evidence of inducible ischemia. No further cardiac workup will be needed at this time. Depending on her progress, further recommendation will be made. Thank you for this consult. Will follow with you. JOSE JUAN / LINDAN: [id number] /
[2020-05-04 13:02] VITALS: BP 190/94; PULSE 88; RESP 14
[2020-05-04] MEDS: MONTELUKAST 10 MG TAB PO SCH (13:03)
[2020-05-04] MEDS ORDERED: MORPHINE SULFATE 2 MG/ML SYRINGE IVP PRN (13:13)
--- NOTE | 2020-05-04 14:00 | ECHOF ---
Referral Reason:cp MEASUREMENTS -------- HEIGHT: 149.9 cm WEIGHT: 59.0 kg BP: 195/98 RVIDd: 2.7 cm (< 3.3) IVSd: 1.7 cm (0.6 - 1.1) LVIDd: 3.5 cm (3.9 - 5.3) LVPWd: 1.5 cm (0.6 - 1.1) IVSs: 2.0 cm LVIDs: 2.2 cm LVPWs: 2.0 cm LAESV Index (A-L): 53.36 ml/m Ao Diam: 2.8 cm (2.0 - 3.7) AV Cusp: 1.8 cm (1.5 - 2.6) MV EXCURSION: 18.162 mm (> 18.000) MV EF SLOPE: 53 mm/s (70 - 150) EPSS: 0.4 cm MV E Benedict: 1.17 m/s MV DecT: 201 ms MV A Benedict: 1.09 m/s MV E/A Ratio: 1.08 RAP: 20.00 mmHg RVSP: 61.40 mmHg FINDINGS -------- Sinus rhythm. This was a technically adequate study. The left ventricular size is normal. There is moderate concentric left ventricular hypertrophy. O verall left ventricular systolic function is normal with, an EF between 55 - 60 %. Increased Lap Gr karthikeyan II Diastolic Dysfunction. The right ventricle is normal in size. LA is severely dilated >40 ml/m2 The right atrial size is normal. Interatrial and interventricular septum intact. The aortic valve is trileaflet, and appears structurally normal. No aortic stenosis or regurgitation. The mitral valve leaflets are mildly thickened. Yzta-ch-vhksunnv mitral regurgitation is present. The tricuspid valve appears structurally normal. Moderate tricuspid regurgitation present. There is severe pulmonary hypertension. The right ventricular systolic pressure, as measured by Doppler, is 61.40mmHg. Trace/mild (physiologic) pulmonic regurgitation. The aortic root size is normal. The inferior vena cava is dilated with poor inspiratory collapse which is consistent with estimated r ight atrial pressure of 20 mmHg. There is no pericardial effusion. CONCLUSIONS -------- 1. There is moderate concentric left ventricular hypertrophy. 2. Overall left ventricular systolic function is normal with, an EF between 55 - 60 %. 3. Increased Lap Grade II Diastolic Dysfunction. 4. LA is severely dilated >40 ml/m2 5. The aortic valve is trileaflet, and appears structurally normal. No aortic stenosis or regurgitati on. 6. Hapz-nh-zaupojpe mitral regurgitation is present. 7. Moderate tricuspid regurgitation present. 8. There is severe pulmonary hypertension. 9. Trace/mild (physiologic) pulmonic regurgitation. 10. The inferior vena cava is dilated with poor inspiratory collapse which is consistent with estimat ed right atrial pressure of 20 mmHg. 11. There is no pericardial effusion. MEDIA PROMOTER: Keisha Joe RDCS
--- NOTE | 2020-05-04 14:44 | ECHOS ---
STRESS ECHOCARDIOGRAM LUMASON: Vial INDICATIONS: Chest pain. MEDICATIONS: BASELINE HEART RATE: 87 BASELINE BLOOD PRESSURE: 197/92 MAXIMUM HEART RATE: 136 MAXIMUM BLOOD PRESSURE: 190/76 85% MPHR: 120 100% MPHR: 141 METS: MAXIMUM STAGE REACHED: 2 TOTAL EXERCISE TIME: CLINICAL INFORMATION: Baseline rhythm is sinus mechanism, rate of 87, normal axis and intervals, nonspecific ST-T wave changes. Baseline blood pressure 197/92 mmHg. Patient received infusion of dobutamine per protocol, peak rate 136 beats per minute which is equal to 96% maximum predicted heart rate. Peak blood pressure 190/76 mmHg. Echocardiographic monitoring revealed occasional PVCs. There was a 1.[address]-segment depression in the inferolateral leads that is improved in recovery. FINDINGS: Baseline echocardiogram revealed normal wall motion. At peak infusion, there was normal wall thickening motion with no hypokinesis or dyskinesis. CONCLUSION: 1. Nondiagnostic electrocardiographic response to dobutamine infusion secondary to baseline EKG abnormality with occasional PVCs. 2. Normal stress echocardiogram with no evidence of stress-induced ischemia. MMODL / IJN: [id number] /
--- NOTE | 2020-05-04 15:27 | P.HPIM ---
History of Present Illness H&P Date: 05/04/20 Chief Complaint: Lower chest wall pain History of presenting complaint: This is a pleasant 79-year-old patient of Dr. Kwon. 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 Patient presents with lower sternal pain rather significant lasting for at least 20 minutes. It didn't radiate to the jaw on the neck. Some dizziness some lightheadedness did feel tired. No perspiration. Admitted with unstable angina. Pain was reproducible. Patient also been having her chronic pain flareup as a pump is not working and she does not have the device to activate the same. Result of that blood pressures been up and patient was prescribed morphine. Patient may have helped possible history of angina in the past with no known coronary artery disease. Review of systems: GEN.: Tired EYES: None HEENT: None NECK: None RESPIRATORY: None CARDIOVASCULAR: As above GASTROINTESTINAL: None GENITOURINARY: None MUSCULOSKELETAL: Chronic joint pains LYMPHATICS: None HEMATOLOGICAL: None PSYCHIATRY: Some anxiety NEUROLOGICAL: None Past medical history to include: Asthma, fibromyalgia, hypertension, hyperlipidemia, osteoarthritis, obstructive sleep apnea, chronic pain syndrome using a pain pump T12 compression fracture, CBD stricture, Social history: No history smoking and alcohol. Physical examination: VITAL SIGNS: 98, 80, 18, 148/79, 100% on 2 L] GENERAL: BMI 26.3, laying in bed, awake a bit anxious. EYES: Pupils equal. Conjunctiva normal. HEENT: External appearance of nose and ears normal, oral cavity grossly normal. NECK: JVD not raised; masses not palpable. HEART: First and second heart sounds are normal; no edema. LUNGS: Respiratory rate normal; clear to auscultation. ABDOMEN: Soft, nontender, liver spleen not palpable, no masses palpable. PSYCH: Alert and oriented x3; mood and affect normal. MUSCULAR skeletal: Some reproducible pain of the lower sternum NEUROLOGICAL: Cranial nerves grossly intact; no facial asymmetry, power and sensation grossly intact. LYMPHATICS: No lymph nodes palpable in the axilla and neck INVESTIGATIONS, reviewed in the clinical context: White count 4.3 hemoglobin 10.6 platelets 166 potassium 3.6 creatinine 0.9 Troponin I-less than 0.012, 0.014, 0.017 EKG tracing normal sinus rhythm-personally reviewed by me Chest x-ray film personally reviewed by me-questionable infiltrate Assessment: -Patient presented with acute lower sternal pain rather severe with some atypical features and reproducibility. Troponins have been negative. Has some cardiac risk factors. -Intermittent asthma -Chronic fibromyalgia -Hyperlipidemia -Essential hypertension -Primary osteoarthritis -Obstructive sleep apnea -Chronic pain syndrome uses a pain pump Plan: Patient's blood pressures currently elevated because of pain. She does not have the stamina to further pain pump inserted given IV morphine when necessary. Seen by yudy childers. Stress test has been ordered. Care was discussed with the patient and at the bedside. Past Medical History Past Medical History: Asthma, Cancer, Chest Pain / Angina, CVA/TIA, Fibromyalgia, Hyperlipidemia, Hypertension, Osteoarthritis (OA), Sleep Apnea/CPAP/BIPAP Additional Past Medical History / Comment(s): OPTIC NEURITIS. CHRONIC PAIN-PAIN PUMP History of Any Multi-Drug Resistant Organisms: None Reported Past Surgical History: Appendectomy, Back Surgery, Bladder Surgery, Breast Surgery, Cholecystectomy, Heart Catheterization, Hysterectomy, Orthopedic Surgery Additional Past Surgical History / Comment(s): Skin CA removed, bladder suspe nsion, bilat cataracts, rt foot surgery, lt wrist ganglion cystectomy, rt shoulder surgery, colonoscopy, egd, rt breast biopsy, rt knee scope, neck surgery. PAIN PUMP Past Anesthesia/Blood Transfusion Reactions: No Reported Reaction Past Psychological History: No Psychological Hx Reported Past Alcohol Use History: None Reported Past Drug Use History: None Reported - Past Family History Father Family Medical History: Cancer Mother Family Medical History: Cancer Brother(s) Family Medical History: Cancer Medications and Allergies Home Medications Medication Instructions Recorded Confirmed Type Montelukast [Singulair] 10 mg PO DAILY 03/26/14 05/03/20 History Sertraline [Zoloft] 100 mg PO DAILY 03/26/14 05/03/20 History Simvastatin [Zocor] 40 mg PO HS 03/26/14 05/03/20 History Metoprolol Succinate (ER) [Toprol 50 mg PO DAILY 02/16/18 05/03/20 History XL] Multivitamins, Thera [Multivitamin 1 tab PO DAILY 02/16/18 05/03/20 History (formulary)] Nortriptyline [Pamelor] 25 mg PO HS 02/16/18 05/03/20 History Sucralfate [Carafate] 1 gm PO ACHS 02/16/18 05/03/20 History Clopidogrel Bisulfate [Plavix] 75 mg PO DAILY 07/15/19 05/03/20 History Fluticasone Nasal [place] [Flonase 2 spray NASAL DIRECTED 07/15/19 05/03/20 History Nasal [place]] Furosemide [Lasix] 40 mg PO DAILY 07/15/19 05/03/20 History Nitroglycerin 0.4 mg SL DIRECTED PRN 07/15/19 05/03/20 History Pantoprazole Sodium [Protonix] 20 mg PO DAILY 07/15/19 05/03/20 History Potassium Chloride ER [K-Dur 10] 10 meq PO DAILY 07/15/19 05/03/20 History cycloSPORINE 0.05% OPHTH SOLN 1 drop BOTH EYES BID PRN 07/15/19 05/03/20 History [Restasis] traMADol HCl [Ultram] 50 mg PO BID PRN 07/15/19 05/03/20 History Baclofen [Lioresal] 10 mg PO Q8H PRN 05/03/20 05/03/20 History Gabapentin [Neurontin] 100 mg PO TID PRN 05/03/20 05/03/20 History Ibuprofen [Advil] 400 mg PO DAILY PRN 05/03/20 05/03/20 History Morphine Pain Pump (Unknown Dose) 1 dose INTRATHECA CONTINUOUS 05/03/20 05/03/20 History Allergies Allergy/AdvReac Type Severity Reaction Status Date / Time latex Allergy Itching Verified 05/03/20 19:23 meperidine Allergy Swelling Verified 05/03/20 19:23 Penicillins AdvReac Confusion Verified 05/03/20 19:23 pregabalin [From Lyrica] AdvReac Confusion Verified 05/03/20 19:23 Sulfa (Sulfonamide AdvReac Itching Verified 05/03/20 19:23 Antibiotics) trimethoprim AdvReac Confusion Verified 05/03/20 19:23 Physical Exam Vitals: Vital Signs Temp Pulse Pulse Resp BP BP Pulse Ox 05/04/20 08:21 98.1 F 79 12 159/68 99 05/04/20 03:00 97.9 F 78 18 166/95 98 05/03/20 19:47 97.8 F 80 18 161/75 94 L 05/03/20 18:35 67 18 148/79 100 05/03/20 17:18 98 F 80 18 174/88 100 Intake and Output 05/03/20 05/04/20 05/04/20 22:59 06:59 14:59 Intake Total 450 0 Balance 450 0 Intake: Oral 450 0 Other: Voiding Method Bedpan Bedpan Bedpan Diaper Diaper Diaper # Voids 1 3 1 Weight 58.967 kg Results CBC & Chem 7: 05/04/20 06:57 05/04/20 06:57 Labs: Abnormal Lab Results - Last 24 Hours (Table) 05/03/20 05/03/20 05/04/20 Range/Units 17:24 17:24 06:57 RBC 3.69 L 3.70 L (3.80-5.40) m/uL Hgb 10.6 L 10.5 L (11.4-16.0) gm/dL Hct 32.8 L 32.9 L (34.0-46.0) % Plt Count 149 L (150-450) k/uL Carbon Dioxide (22-30) mmol/L BUN 21 H (7-17) mg/dL Glucose 105 H (74-99) mg/dL Lipase 322 H (23-300) U/L 05/04/20 Range/Units 06:57 RBC (3.80-5.40) m/uL Hgb (11.4-16.0) gm/dL Hct (34.0-46.0) % Plt Count (150-450) k/uL Carbon Dioxide 31 H (22-30) mmol/L BUN (7-17) mg/dL Glucose (74-99) mg/dL Lipase (23-300) U/L
--- NOTE | 2020-05-04 19:28 | P.DS ---
Providers Date of admission: 05/03/20 18:53 Expected date of discharge: 05/04/20 Attending physician: Matteo Rivas Consults: 05/03/20 18:53 Consult Physician Urgent Consulting Provider: [facility] Consult Reason/Comments: acute chest pain, possible acs Do you want consulting provider notified?: Yes Primary care physician: Fernando Kwon [facility] Course: Chief Complaint: Lower chest wall pain History of presenting complaint: This is a pleasant 79-year-old patient of Dr. Kwon. 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 Patient presents with lower sternal pain rather significant lasting for at least 20 minutes. It didn't radiate to the jaw on the neck. Some dizziness some lightheadedness did feel tired. No perspiration. Admitted with unstable angina. Pain was reproducible. Patient also been having her chronic pain flareup as a pump is not working and she does not have the device to activate the same. Result of that blood pressures been up and patient was prescribed morphine. Patient may have helped possible history of angina in the past with no known coronary artery disease. Troponins were negative. Stress echocardiogram negative for ischemia. Symptoms most likely secondary to fibromyalgia. 2-D echo showed moderate tricuspid regurgitation and severe pulmonary hypertension. Patient will follow up with urology as an outpatient for a left kidney mass follow-up. Discussed. Patient's blood pressure was running high here because the pain pump was not working just significant pain and IV morphine was to be given. After patient follows up with Dr. Kwon patient can be established with the apparel stock checker follow-up for her pulmonary hypertension Consultation: Dr. Richardson from cardiology Physical examination: VITAL SIGNS: 98, 80, 18, 148/79, 100% on 2 L] GENERAL: BMI 26.3, laying in bed, awake a bit anxious. EYES: Pupils equal. Conjunctiva normal. HEENT: External appearance of nose and ears normal, oral cavity grossly normal. NECK: JVD not raised; masses not palpable. HEART: First and second heart sounds are normal; no edema. LUNGS: Respiratory rate normal; clear to auscultation. ABDOMEN: Soft, nontender, liver spleen not palpable, no masses palpable. PSYCH: Alert and oriented x3; mood and affect normal. MUSCULAR skeletal: Some reproducible pain of the lower sternum INVESTIGATIONS, reviewed in the clinical context: White count 4.3 hemoglobin 10.6 platelets 166 potassium 3.6 creatinine 0.9 Troponin I-less than 0.012, 0.014, 0.017 EKG tracing normal sinus rhythm-personally reviewed by me Chest x-ray film personally reviewed by me-questionable infiltrate Assessment: -Chest pain possibly from fibromyalgia -Intermittent asthma -Chronic fibromyalgia -Hyperlipidemia -Essential hypertension -Primary osteoarthritis -Obstructive sleep apnea -Chronic pain syndrome uses a pain pump -Normocytic anemia for further workup outpatient by PCP -Severe pulmonary hypertension -Severe tricuspid regurgitation Disposition: Home Patient Condition at Discharge: Stable Plan - Discharge Summary Discharge Rx Participant: Yes New Discharge Prescriptions: Continue Simvastatin [Zocor] 40 mg PO HS Sertraline [Zoloft] 100 mg PO DAILY Montelukast [Singulair] 10 mg PO DAILY Metoprolol Succinate (ER) [Toprol XL] 50 mg PO DAILY Sucralfate [Carafate] 1 gm PO ACHS Multivitamins, Thera [Multivitamin (formulary)] 1 tab PO DAILY Nortriptyline [Pamelor] 25 mg PO HS traMADol HCl [Ultram] 50 mg PO BID PRN PRN Reason: Pain cycloSPORINE 0.05% OPHTH SOLN [Restasis] 1 drop BOTH EYES BID PRN PRN Reason: dry eyes Potassium Chloride ER [K-Dur 10] 10 meq PO DAILY Pantoprazole Sodium [Protonix] 20 mg PO DAILY Nitroglycerin 0.4 mg SL DIRECTED PRN PRN Reason: Chest Pain Furosemide [Lasix] 40 mg PO DAILY Fluticasone Nasal [place] [Flonase Nasal [place]] 2 spray NASAL DIRECTED Clopidogrel Bisulfate [Plavix] 75 mg PO DAILY Morphine Pain Pump (Unknown Dose) 1 dose INTRATHECA CONTINUOUS Gabapentin [Neurontin] 100 mg PO TID PRN PRN Reason: Pain Baclofen [Lioresal] 10 mg PO Q8H PRN PRN Reason: muscle spasm Ibuprofen [Advil] 400 mg PO DAILY PRN PRN Reason: Pain Discharge Medication List Montelukast [Singulair] 10 mg PO DAILY 03/26/14 [History] Sertraline [Zoloft] 100 mg PO DAILY 03/26/14 [History] Simvastatin [Zocor] 40 mg PO HS 03/26/14 [History] Metoprolol Succinate (ER) [Toprol XL] 50 mg PO DAILY 02/16/18 [History] Multivitamins, Thera [Multivitamin (formulary)] 1 tab PO DAILY 02/16/18 [History] Nortriptyline [Pamelor] 25 mg PO HS 02/16/18 [History] Sucralfate [Carafate] 1 gm PO ACHS 02/16/18 [History] Clopidogrel Bisulfate [Plavix] 75 mg PO DAILY 07/15/19 [History] Fluticasone Nasal [place] [Flonase Nasal [place]] 2 spray NASAL DIRECTED 07/15/19 [History] Furosemide [Lasix] 40 mg PO DAILY 07/15/19 [History] Nitroglycerin 0.4 mg SL DIRECTED PRN 07/15/19 [History] Pantoprazole Sodium [Protonix] 20 mg PO DAILY 07/15/19 [History] Potassium Chloride ER [K-Dur 10] 10 meq PO DAILY 07/15/19 [History] cycloSPORINE 0.05% OPHTH SOLN [Restasis] 1 drop BOTH EYES BID PRN 07/15/19 [History] traMADol HCl [Ultram] 50 mg PO BID PRN 07/15/19 [History] Baclofen [Lioresal] 10 mg PO Q8H PRN 05/03/20 [History] Gabapentin [Neurontin] 100 mg PO TID PRN 05/03/20 [History] Ibuprofen [Advil] 400 mg PO DAILY PRN 05/03/20 [History] Morphine Pain Pump (Unknown Dose) 1 dose INTRATHECA CONTINUOUS 05/03/20 [Histo ry] Follow up Appointment(s)/Referral(s): Bruna Lopez MD [STAFF PHYSICIAN] - 1 Week Fernando Kwon MD [Primary Care Provider] - 1-2 days Rodger Mckinley MD [STAFF PHYSICIAN] - 05/13/20 2:00 pm (left kidney mass) Patient Instructions/Handouts: Angina (GEN)
== END 2020-05-04 16:40 | disposition home or self-care (01) ==
LOC: EC 17:15 → 3NCARDOBS 18:53
PROVIDERS: ADMIT Hospitalist; ATTEND Hospitalist
DX: R07.89 Other chest pain (principal); R42 Dizziness and giddiness; R10.13 Epigastric pain; R94.31 Abnormal electrocardiogram [ECG] [EKG]; I20.0 Unstable angina; J45.20 Mild intermittent asthma, uncomplicated; M79.7 Fibromyalgia; E78.5 Hyperlipidemia, unspecified; I10 Essential (primary) hypertension; G89.4 Chronic pain syndrome; D64.9 Anemia, unspecified; I07.1 Rheumatic tricuspid insufficiency; I27.20 Pulmonary hypertension, unspecified; M19.90 Unspecified osteoarthritis, unspecified site; G47.33 Obstructive sleep apnea (adult) (pediatric); H46.9 Unspecified optic neuritis; I49.3 Ventricular premature depolarization; K83.1 Obstruction of bile duct; D49.512 Neoplasm of unspecified behavior of left kidney; T85.9XXA Unspecified complication of internal prosthetic device, implant and graft, initial encounter; R60.0 Localized edema; R91.8 Other nonspecific abnormal finding of lung field; R74.8 Abnormal levels of other serum enzymes; Z79.899 Other long term (current) drug therapy; Z79.02 Long term (current) use of antithrombotics/antiplatelets; Z79.891 Long term (current) use of opiate analgesic; Z79.1 Long term (current) use of non-steroidal anti-inflammatories (NSAID); Z91.040 Latex allergy status; Z88.5 Allergy status to narcotic agent; Z88.0 Allergy status to penicillin; Z88.8 Allergy status to other drugs, medicaments and biological substances; Z88.2 Allergy status to sulfonamides; Z88.1 Allergy status to other antibiotic agents; Z85.828 Personal history of other malignant neoplasm of skin; Z86.73 Personal history of transient ischemic attack (TIA), and cerebral infarction without residual deficits; Z99.89 Dependence on other enabling machines and devices; Z90.49 Acquired absence of other specified parts of digestive tract; Z98.890 Other specified postprocedural states; Z90.710 Acquired absence of both cervix and uterus; Z98.41 Cataract extraction status, right eye; Z98.42 Cataract extraction status, left eye; Z87.39 Personal history of other diseases of the musculoskeletal system and connective tissue; Z87.81 Personal history of (healed) traumatic fracture; Z80.9 Family history of malignant neoplasm, unspecified
CPT/HCPCS: 93005 ×2; 96374; 99285; 36415; 93306; 93351; 83880; 80053; 80048; 83690; 83735; 84484; 85025 ×2; 85610; 85730; 71046; G0378 ×2; J1250; J2270